=== PATIENT | female | born 1950 | race Caucasian/White ===

== ENCOUNTER 2019-08-22 12:21 | IRF | payer OTHER, SELFPAY ==
--- NOTE | ~2019-08-22 | XR_ITS ---
MODIFIED ESOPHAGRAM HISTORY: Dysphagia. TECHNIQUE: Modified barium esophagram was performed on 08/24/2019. I administered fluoroscopy and perfo rmed the exam with speech pathologist. Patient was seated for lateral fluoroscopic imaging for inges tion of thin liquids, pudding, solids and quantified amounts, followed by thin liquids an uncontrolle d amounts. This was recorded on tape. A single fluoroscopic spot image was also recorded. The DAP for this procedure was 1.515 Gycm2. The amount of fluoroscopy time used during this procedure was 2.1 mi nutes. FINDINGS: Oral stage: Premature spillage into the pharynx.. Pharyngeal stage: Laryngeal penetration small amount of contrast with multiple consistencies. No aspi ration. Cervical/esophageal stage: Adequate function. IMPRESSION: Oropharyngeal dysphagia with laryngeal penetration but not aspiration. Please correlate with speech pathologist findings and specific feeding recommendations. Reviewed, dictated and finalized at location A. ROAD SIGNAL TECHNICIAN IMPRESSION: Oropharyngeal dysphagia with laryngeal penetration but not aspirati on. Please correlate with speech pathologist findings and specific feeding rec ommendations.
--- NOTE | 2019-08-22 13:36 | ADMGEN ---
This patient, Cherise Islas, was admitted to [facility] Room 219-02. Patient/family oriented to hospital policies and general routines including ID bracelet, bed and alarms, visiting hours, pain management, procedures, bathroom and other care routines, personal items, smoking policy, room service/diet, and visiting hours. Valuables list has been completed. Information on how to activate the Rapid Response Team has been discussed. Patient/Family are encouraged to report perceived risks to care and to ask questions if they do not understand what they are told or what they should do.
[2019-08-22] MEDS: OMEGA 3 POLYUNSAT FATTY ACIDS 1 GM CAP PO (17:39)
[2019-08-22 20:41] VITALS: PULSE 88
[2019-08-22] MEDS: METOPROLOL SUCCINATE EXT REL 12.5 MG TABCR PO (20:41)
[2019-08-22] MEDS: ATORVASTATIN 40 MG TABLET PO (20:41)
[2019-08-22 21:43] VITALS: BP 119/57; PULSE 68; RESP 16; TEMP 36.2; O2SAT 95
[2019-08-23 05:34] LABS: Basophils Absolute Auto 0.1 K/mm3 (0.0-0.1); Basophils Percent Auto 0.6 % (0.2-1.2); Eosinophils Absolute Auto 0.3 K/mm3 (0-0.3); Eosinophils Percent Auto 3.4 % (0-4.4); Hematocrit 42.9 % (37.0-47.0); Hemoglobin 13.5 g/dL (12.0-15.0); Immature Granulocyte Absolute 0.02 K/mm3 (0.00-0.031); Immature Granulocyte Percent A 0.3 % (0-0.5); Lymphocytes Absolute Auto 1.52 K/mm3 (0.9-3.2); Lymphocytes Percent Auto 19.3 % (18.3-44.2); Mean Corpuscular HGB Conc 31.5 g/dl (32-36); Mean Corpuscular Hemoglobin 28.7 pg (26-34); Mean Corpuscular Volume 91.1 fl (80-100); Mean Platelet Volume 12.5 fl (7.4-10.4); Monocytes Absolute Auto 0.7 K/mm3 (0.1-0.6); Monocytes Percent Auto 8.9 % (2.6-8.5); Neutrophils Absolute Auto 5.3 K/mm3 (1.3-6.7); Neutrophils Percent Auto 67.5 % (45.5-73.1); Platelet Count Result 255 k/mm3 (150-375); Red Blood Count 4.71 M/mm3 (4.2-5.4); Red Cell Distribution Width 14.6 % (11.5-14.5); White Blood Count 7.9 K/mm3 (4.5-10.0)
[2019-08-23 05:56] LABS: Blood Urea Nitrogen 30 mg/dL (7-17); Carbon Dioxide 27 mmol/L (22-30); Chloride 101 mmol/L (98-107); Estimated Glomerular Filt Rate > 60; Glucose 112 mg/dL (65-105); Potassium 4.2 mmol/L (3.4-5.0); Sodium 141 mmol/L (137-145)
[2019-08-23 07:23] VITALS: BMI 24.8
[2019-08-23 07:29] VITALS: BP 121/46; PULSE 59; RESP 16; TEMP 36.2; O2SAT 96
--- NOTE | 2019-08-23 08:30 | WPDREHABHP ---
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 The patient is a 68-year-old woman with a past medical history of stroke, hypertension, and hypothyroidism who was recently discharged from [facility] on August 10, 2019 after an acute CVA. She initially presented with increased dysarthria and left-sided facial droop and left-sided upper and lower extremity weakness. She was able to walk at discharge. Since being home over the past week she has experienced increased weakness in the left upper lower extremities. She is unable to lift her arm off the bed. They attempted to get home health on board but they were unavailable for another week. She re-presented centers but again on August 17, 2019. She has been compliant with her aspirin and Plavix since discharge. Physical examination revealed left upper extremity flaccid, left lower extremity 3/5. She presents with left facial droop and her tongue she is to the right head CT was negative for any acute abnormality. A superimposed infarct was not excluded chest x-ray showed mild increased interstitial markings in the left lung possibly a chronic finding. Prior ejection fraction on August 17, 2019 showed adjust is action fraction of 55 to 60% with no valvular abnormalities. Neurology was consulted. Repeat MRI showed an enlarging area of abnormal diffusion hyperintensity within the region of the right basal ganglia suggesting area of enlarging acute infarction. MRA showed no significant stenosis or aneurysm in the visualized portions of the ambler of [place]. She was continue would not explain and Plavix and atorvastatin was increased. Cardiology was consulted but thought an embolic phenomenon was not likely. The patient was recommended at 30 day monitor post discharge to screen for atrial fibrillation. She is to follow-up with cardiology in 6 weeks. The patient passed her bedside swallowing evaluation and is on heart early regular consistency diet with thin liquids, however speech continues to follow for mild oral dysphagia and dysarthria physical examination continues to reveal left-sided weakness decreased gross motor controlled impaired balance and decreased safety awareness. DVT prophylaxis with b.i.d. subcutaneous heparin. Therapy was initiated at the acute care facility and the patient transferred to us from [facility] on August 22, 2019 FALLS OR SURGERIES: The patient has had no major surgeries in the 100 days prior to admission. They had no falls in the past year. They had no falls with injury in the past year. 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 Cleft palate repair earlier in life, hysterectomy SOCIAL HISTORY: the patient is and lives with her in a 1 level home with the platform entry. She was completely independent prior with no assistive device. Her is available to assist are following rehabilitation with higher level activities. Never smoker no alcohol or drug use FAMILY HISTORY: mother with cancer PRIOR LEVEL OF FUNCTION: Eating was INDEPENDENT Oral Care was INDEPENDENT Toileting Hygiene was INDEPENDENT Shower/Bathing was INDEPENDENT Upper Body Dressing was INDEPENDENT Lower Body Dressing was INDEPENDENT Donning/[place] Footwear was INDEPENDENT Rolling Left and Right was INDEPENDENT Sit to Lying was INDEPENDENT Lying to Sitting was INDEPENDENT Sit to Stand was INDEPENDENT Bed to Chair Transfers was INDEPENDE
[2019-08-23] MEDS: FERROUS SULFATE DRIED 142 MG TABCR PO (08:36)
[2019-08-23] MEDS: CHOLECALCIFEROL 1,000 UNIT TABLET 5000 UNITS PO (08:37)
[2019-08-23] MEDS: ASPIRIN 81 MG ENTERIC TABLET PO (08:37)
[2019-08-23] MEDS: FLUOXETINE HCL 20 MG CAP 40 MG PO (08:38)
[2019-08-23] MEDS: OMEGA 3 POLYUNSAT FATTY ACIDS 1 GM CAP PO ×2 (08:38→18:02)
[2019-08-23] MEDS: OPTI-GEN TAB 1 TABLET PO (08:38)
[2019-08-23] MEDS: CLOPIDOGREL BISULFATE 75 MG TABLET PO (08:38)
[2019-08-23] MEDS: LORATADINE 10 MG TABLET PO (08:38)
[2019-08-23] MEDS: PANTOPRAZOLE SOD SESQUIHYDRATE 20 MG TAB PO (08:39)
[2019-08-23] MEDS: ramipriL 5 MG CAPSULE 10 MG PO (08:39)
--- NOTE | 2019-08-23 12:26 | PCSTNOTE ---
Please refer to the Bedside Swallow Evaluation in the EMR.
[2019-08-23] MEDS: SOLIFENACIN 5 MG TABLET 10 MG PO (12:38)
[2019-08-23 14:00] VITALS: BP 132/48; PULSE 80; RESP 18; TEMP 36.5; O2SAT 93
[2019-08-23 14:22] VITALS: BMI 24.8
--- NOTE | 2019-08-23 14:39 | PCNSR ---
On 08/23/19, the student, [Jaimie Perez ], provided care and completed [facility] documentation on this patient. I have reviewed the student's documentation and agree with the findings.
[2019-08-23 20:43] VITALS: PULSE 80
[2019-08-23] MEDS: METOPROLOL SUCCINATE EXT REL 12.5 MG TABCR PO (20:43)
[2019-08-23] MEDS: HEPARIN SODIUM 5,000 UNITS/ML VIAL 5000 UNITS SUB-Q (20:43)
[2019-08-23] MEDS: ATORVASTATIN 40 MG TABLET PO (20:44)
[2019-08-23 22:00] VITALS: BP 131/57; PULSE 80; RESP 20; TEMP 36.3; O2SAT 93
[2019-08-24 06:00] VITALS: BP 139/63; PULSE 64; RESP 20; TEMP 36.3; O2SAT 94
[2019-08-24] MEDS: SOLIFENACIN 5 MG TABLET 10 MG PO (09:16)
[2019-08-24] MEDS: PANTOPRAZOLE SOD SESQUIHYDRATE 20 MG TAB PO (09:17)
[2019-08-24] MEDS: HEPARIN SODIUM 5,000 UNITS/ML VIAL 5000 UNITS SUB-Q ×2 (09:17→20:04)
[2019-08-24] MEDS: ramipriL 5 MG CAPSULE 10 MG PO (09:17)
[2019-08-24] MEDS: CLOPIDOGREL BISULFATE 75 MG TABLET PO (09:17)
[2019-08-24] MEDS: LORATADINE 10 MG TABLET PO (09:17)
[2019-08-24] MEDS: CHOLECALCIFEROL 1,000 UNIT TABLET 5000 UNITS PO (09:17)
[2019-08-24] MEDS: FLUOXETINE HCL 20 MG CAP 40 MG PO (09:17)
[2019-08-24] MEDS: OPTI-GEN TAB 1 TABLET PO (09:18)
[2019-08-24] MEDS: OMEGA 3 POLYUNSAT FATTY ACIDS 1 GM CAP PO ×2 (09:18→16:56)
[2019-08-24] MEDS: FERROUS SULFATE DRIED 142 MG TABCR PO (09:18)
[2019-08-24] MEDS: ASPIRIN 81 MG ENTERIC TABLET PO (09:18)
--- NOTE | 2019-08-24 12:42 | RPD ---
INDIVIDUALIZED PLAN OF CARE FOR Cherise Islas Brief Synthesis of Pre-Admission Screen, Post-Admission Evaluation and Therapy Evaluations: The patient presents to rehab with an extension of right basal ganglia infarct. Comorbidities include hypertension, hyperlipidemia, flaccid LUE, weakness LLE, dysarthria, dysphagia,hypothyroidism, gastroesophageal reflux disease, depression. The patient requires physician services for neurology services, medical oversight, and coordination of care. Emotional needs will be monitored as depression is a common sequelae of stroke. The patient needs physician monitoring and treatment of hypertension, monitoring for adverse reactions to new medications, and monitoring for infection. The patient requires nursing services for frequent neuro checks, anticoagulation therapy, medication management and education, pressure relief and skin care management, monitoring of labs, and fall/safety precautions. Deficits include:ADLs, Balance, Endurance, Family Training/Education, Mobility, Pain Management, ROM, Safety, Speech, Strength, Transfers, Swallowing Bottom Turning Lathe Turner/Case Management for: Discharge Planning and Patient/Family Counseling Physical Therapy: 5 days per week for 60 minutes. Treatments may include: Therapeutic Exercise, Gait Training, Neuromuscular Re-education, Transfer Training, Community Reintegration, Bed Mobility, Patient/Family Education, Wheelchair Mobility Group Therapy/Concurrent Therapy Rationales: -Improve attention span during functional activities in a distracted environment. -Enhance problem solving and/or adequate judgment skills during functional activities in a distracted environment. -Promote increased safety awareness in a distracted environment to reduce fall risk with functional tasks, transfers, and ambulation to allow a more safe, self-sufficient return to the home environment. -Improve dynamic balance skills to promote safety and independence with functional activities in a distracted environment for maximum gain. Occupational Therapy: 5 days per week for 60 minutes. Treatments may include: Therapeutic Exercise, Therapeutic Activity, Cognitive Training, Self-Care Transfer Training, Community Reintegration, Home Management, Patient/Family Education, Wheelchair Mobility Training, Energy Conservation Training Group Therapy/Concurrent Therapy Rationales: -Allow therapist to observe and teach generalization and carry-over of skills learned in individual therapy. -Enhance problem solving and sequencing skills during therapeutic activities in a distracted environment. -Promote increased safety awareness in a realistic setting to reduce fall risk with functional tasks due to visual and verbal distractions. -Increase functional level with ADLs, ADL transfers and use of adaptive equipment through therapeutic activities with others while promoting safety to allow a more safe, self-sufficient return home. Speech Therapy: 5 days per week for 60 minutes. Treatments may include: Dysphasia Therapy, Speech/Language/Communication Therapy, Cognitive Training, Patient/Family Education Group Therapy/Concurrent Therapy - Rationale: -Allow therapist to observe and teach generalization and carry-over of skills learned in individual therapy. -Improve comprehension skills with complex or abstract ideas through discussion in a realistic setting. -Enhance problem solving skills with complex issues during activities in a distracted environment. -Promote increased memory skills and concentration in a distracted environment for a safe transition home. -Improve attention and focus with language/communication skills in a realistic and supportive therapeutic setting. -Allow for practice of expression of basic needs and ideas through functional activities with others. Medical Prognosis: Good Anticipated Length of Stay: 12 days Rehab Goals: Eating Goal: 05-Setup or Clean Up Assistance Oral Hygiene Goal: 06-Independent Toileting Hy
--- NOTE | 2019-08-24 12:53 | PCSTNOTE ---
Addendum entered by RENATE Castillo 08/24/19 12:58: CORRECTION: Please refer to the MODIFIED BARIUM SWALLOW EVALUATION in the EMR. Original Note: Please refer to the Bedside Swallow Evaluation in the EMR.
[2019-08-24 14:00] VITALS: BP 127/54; PULSE 68; RESP 18; TEMP 36.8; O2SAT 97
--- NOTE | 2019-08-24 14:36 | WPDNEURORHBP ---
Subjective Date/time seen: 08/24/19 14:36 Interval history: this 68-year-old who has a long stented post repair dysphonia and dysarthria related to repair of the cleft lip and cleft palate was admitted to our acute rehab floor with extension of the right-sided basal ganglia infarct left-sided hemiparesis The patient denies any new neurological symptoms she is doing fairly well and engage in therapy looking forward to be going home her was present at the time of the interview she is quite motivated looking forward for the extensive physical therapy she needs There is no headache nausea vomiting chest pain or shortness of breath Review of Systems Review of Systems: All systems reviewed & are unremarkable except as noted in HPI and below Functional Status Ambulation Ability Ability to Ambulate 10 Feet: Moderate Assistance X 1 Ambulation Assistive Devices: Parallel Bars and Railings Exam Const: General: comfortable and no acute distress HENMT: General nose exam: Normal nares present Mouth: Yes moist mucous membranes Eyes: General: appearance normal, both eyes and all related structures Neck: Neck: supple and no JVD Resp: Effort & Inspection: normal respiratory effort Auscultation: clear to auscultation bilaterally Cardio: Rate: regular rate Rhythm: regular rhythm GI: GI Palp: Yes Soft to palpation Auscultation: normal bowel sounds Skin: General skin exam: normal color and no rashes or lesions noted Neuro: Other: the patient is awake and alert well oriented in time place and person has normal speech and language function except the dysarthria and dysphonia related to cleft lip and cleft palate repair in car stower I presume her left-sided hemiparesis is improving and overall status is of improvement however she still needs the acute rehab because she still needs the assistance all the activities of daily living Extrem: General: normal to inspection Psych: Mental Status: mental status grossly normal Objective Data Vital Signs Vital Signs: Vital Signs - 24 hr 08/23/19 20:43 08/23/19 22:00 08/24/19 06:00 Temperature 36.3 C L 36.3 C L Pulse Rate 80 80 64 Respiratory Rate 20 20 Blood Pressure 131/57 L 139/63 Pulse Oximetry 93 94 Intake/Output Intake/Output: Intake & Output 08/21/19 08/22/19 08/23/19 08/24/19 23:59 23:59 23:59 23:59 Intake Total 560 480 Balance 560 480 Meds/Results Medications: Active Medications Generic Name Dose Route Start Last Admin Trade Name Maria Del Carmen PRN Reason Stop Dose Admin Aspirin 81 mg 08/23/19 09:00 08/24/19 09:18 Aspirin Ec PO 81 mg DAILY NOÉ Administration Atorvastatin Calcium 40 mg 08/22/19 21:00 08/23/19 20:44 Lipitor PO 40 mg HS NOÉ Administration Calcium Carbonate 500 mg 08/23/19 09:00 08/24/19 09:18 Os-Margarito 500 +D Tablet PO 500 mg DAILY NOÉ Administration Clopidogrel Bisulfate 75 mg 08/23/19 09:00 08/24/19 09:17 Plavix PO 75 mg DAILY NOÉ Administration Ferrous Sulfate 142 mg 08/23/19 08:00 08/24/19 09:18 Slow Fe 142 Mg PO 142 mg DAILY@0800 NOÉ Administration Fish Oil 1 gm 08/22/19 17:00 08/24/19 09:18 Lovaza PO 1 gm BID NOÉ Administration Fluoxetine HCl 40 mg 08/23/19 09:00 08/24/19 09:17 Prozac PO 40 mg DAILY NOÉ Administration Heparin Sodium (Porcine) 5,000 units 08/23/19 21:00 08/24/19 09:17 Heparin Sodium SUB-Q 5,000 units Q12HR NOÉ Administration Loratadine 10 mg 08/23/19 09:00 08/24/19 09:17 Claritin PO 10 mg DAILY NOÉ Administration Metoprolol Succinate 12.5 mg 08/22/19 21:00 08/23/19 20:43 Toprol Xl PO 12.5 mg HS NOÉ Administration Multivitamins/Minerals 1 tablet 08/23/19 09:00 08/24/19 09:18 Ocuvite PO 1 tablet DAILY NOÉ Administration Pantoprazole Sodium 20 mg 08/23/19 09:00 08/24/19 09:17 Protonix PO 20 mg QAM NOÉ Administration Ramipril 10 mg 08/23/19 09:00 08/24/19 09:17 Altace
[2019-08-24] MEDS: ATORVASTATIN 40 MG TABLET PO (20:04)
[2019-08-24 20:08] VITALS: PULSE 74
[2019-08-24] MEDS: METOPROLOL SUCCINATE EXT REL 12.5 MG TABCR PO (20:08)
[2019-08-24 22:00] VITALS: BP 125/57; PULSE 78; RESP 17; TEMP 36.4; O2SAT 94
[2019-08-25 06:00] VITALS: BP 116/61; PULSE 65; RESP 17; TEMP 36.4; O2SAT 90
[2019-08-25] MEDS: FERROUS SULFATE DRIED 142 MG TABCR PO (08:32)
[2019-08-25] MEDS: ASPIRIN 81 MG ENTERIC TABLET PO (08:32)
[2019-08-25] MEDS: HEPARIN SODIUM 5,000 UNITS/ML VIAL 5000 UNITS SUB-Q ×2 (08:33→20:01)
[2019-08-25] MEDS: CLOPIDOGREL BISULFATE 75 MG TABLET PO (08:33)
[2019-08-25] MEDS: CHOLECALCIFEROL 1,000 UNIT TABLET 5000 UNITS PO (08:33)
[2019-08-25] MEDS: FLUOXETINE HCL 20 MG CAP 40 MG PO (08:33)
[2019-08-25] MEDS: SOLIFENACIN 5 MG TABLET 10 MG PO (08:34)
[2019-08-25] MEDS: PANTOPRAZOLE SOD SESQUIHYDRATE 20 MG TAB PO (08:34)
[2019-08-25] MEDS: LORATADINE 10 MG TABLET PO (08:34)
[2019-08-25] MEDS: OPTI-GEN TAB 1 TABLET PO (08:34)
[2019-08-25] MEDS: OMEGA 3 POLYUNSAT FATTY ACIDS 1 GM CAP PO ×2 (08:34→18:41)
[2019-08-25] MEDS: ramipriL 5 MG CAPSULE 10 MG PO (08:34)
[2019-08-25 14:00] VITALS: BP 118/73; PULSE 78; RESP 20; TEMP 36.3; O2SAT 97
[2019-08-25 20:01] VITALS: PULSE 80
[2019-08-25] MEDS: METOPROLOL SUCCINATE EXT REL 12.5 MG TABCR PO (20:01)
[2019-08-25] MEDS: ATORVASTATIN 40 MG TABLET PO (20:02)
[2019-08-25 22:00] VITALS: BP 119/51; PULSE 82; RESP 17; TEMP 36.2; O2SAT 95
--- NOTE | 2019-08-26 03:25 | PC.NURSE ---
Daylight Savings Time For Daylight Savings Time Ending in the Fall - Clocks are moved back. For Daylight Savings Time Beginning in the Spring - Clocks are moved ahead. For [facility], the time of change occurs at 0200 hrs. Time is taken from the websphere process server developer. This entry on the patient's chart recognizes the change in time reflected during documentation. Example: 2 entries for vital signs may be charted for 0200 hrs.
[2019-08-26 06:00] VITALS: BP 118/58; PULSE 69; RESP 17; TEMP 36.4; O2SAT 93
[2019-08-26] MEDS: CHOLECALCIFEROL 1,000 UNIT TABLET 5000 UNITS PO (08:42)
[2019-08-26] MEDS: OMEGA 3 POLYUNSAT FATTY ACIDS 1 GM CAP PO ×2 (08:42→18:30)
[2019-08-26] MEDS: LORATADINE 10 MG TABLET PO (08:43)
[2019-08-26] MEDS: OPTI-GEN TAB 1 TABLET PO (08:43)
[2019-08-26] MEDS: FERROUS SULFATE DRIED 142 MG TABCR PO (08:43)
[2019-08-26] MEDS: ASPIRIN 81 MG ENTERIC TABLET PO (08:43)
[2019-08-26] MEDS: FLUOXETINE HCL 20 MG CAP 40 MG PO (08:43)
[2019-08-26] MEDS: CLOPIDOGREL BISULFATE 75 MG TABLET PO (08:43)
[2019-08-26] MEDS: PANTOPRAZOLE SOD SESQUIHYDRATE 20 MG TAB PO (08:44)
[2019-08-26] MEDS: ramipriL 5 MG CAPSULE 10 MG PO (08:44)
[2019-08-26] MEDS: SOLIFENACIN 5 MG TABLET 10 MG PO (08:44)
[2019-08-26] MEDS: HEPARIN SODIUM 5,000 UNITS/ML VIAL 5000 UNITS SUB-Q ×2 (08:45→19:46)
--- NOTE | 2019-08-26 14:29 | WPDNEURORHBP ---
Subjective Date/time seen: 08/26/19 14:29 Interval history: this 68-year-old woman is here after having extension of the right basal ganglia infarct with moderately severe left-sided hemiparesis she is doing fairly well in the rehab our ever is still as long time to go she denies any headache nausea vomiting double vision blurred vision or any further weakness beside what she already came with Review of Systems Review of Systems: All systems reviewed & are unremarkable except as noted in HPI and below Functional Status Ambulation Ability Ability to Ambulate 10 Feet: Moderate Assistance X 1 Ambulation Assistive Devices: Parallel Bars Exam Const: General: comfortable and no acute distress HENMT: General nose exam: Normal nares present Mouth: Yes moist mucous membranes Eyes: General: appearance normal, both eyes and all related structures Neck: Neck: supple and no JVD Resp: Effort & Inspection: normal respiratory effort Auscultation: clear to auscultation bilaterally Cardio: Rate: regular rate Rhythm: regular rhythm GI: GI Palp: Yes Soft to palpation Auscultation: normal bowel sounds Skin: General skin exam: normal color and no rashes or lesions noted Neuro: Other: the patient is awake and alert well oriented time place and person has dysphonia and dysarthria related to her cleft lip and cleft palate repair early in her life moderately severe hemiparesis is slowly improving Extrem: General: normal to inspection Psych: Mental Status: mental status grossly normal Objective Data Vital Signs Vital Signs: Vital Signs - 24 hr 08/25/19 14:00 08/25/19 20:01 08/25/19 22:00 Temperature 36.3 C L 36.2 C L Pulse Rate 78 80 82 Respiratory Rate 20 17 Blood Pressure 118/73 119/51 L Pulse Oximetry 97 95 08/26/19 06:00 Temperature 36.4 C L Pulse Rate 69 Respiratory Rate 17 Blood Pressure 118/58 L Pulse Oximetry 93 Intake/Output Intake/Output: Intake & Output 08/23/19 08/24/19 08/25/19 08/27/19 23:59 23:59 23:59 00:59 Intake Total 560 480 509 713 Balance 560 184 780 713 Meds/Results Medications: Active Medications Generic Name Dose Route Start Last Admin Trade Name Freq PRN Reason Stop Dose Admin Aspirin 81 mg 08/23/19 09:00 08/26/19 08:43 Aspirin Ec PO 81 mg DAILY NOÉ Administration Atorvastatin Calcium 40 mg 08/22/19 21:00 08/25/19 20:02 Lipitor PO 40 mg HS NOÉ Administration Calcium Carbonate 500 mg 08/23/19 09:00 08/26/19 08:43 Os-Margarito 500 +D Tablet PO 500 mg DAILY NOÉ Administration Clopidogrel Bisulfate 75 mg 08/23/19 09:00 08/26/19 08:43 Plavix PO 75 mg DAILY NOÉ Administration Ferrous Sulfate 142 mg 08/23/19 08:00 08/26/19 08:43 Slow Fe 142 Mg PO 142 mg DAILY@0800 NOÉ Administration Fish Oil 1 gm 08/22/19 17:00 08/26/19 08:42 Lovaza PO 1 gm BID [facility] Administration Fluoxetine HCl 40 mg 08/23/19 09:00 08/26/19 08:43 Prozac PO 40 mg DAILY NOÉ Administration Heparin Sodium (Porcine) 5,000 units 08/23/19 21:00 08/26/19 08:45 Heparin Sodium SUB-Q 5,000 units Q12HR NOÉ Administration Loratadine 10 mg 08/23/19 09:00 08/26/19 08:43 Claritin PO 10 mg DAILY NOÉ Administration Metoprolol Succinate 12.5 mg 08/22/19 21:00 08/25/19 20:01 Toprol Xl PO 12.5 mg HS [facility] Administration Multivitamins/Minerals 1 tablet 08/23/19 09:00 08/26/19 08:43 Ocuvite PO 1 tablet DAILY NOÉ Administration Pantoprazole Sodium 20 mg 08/23/19 09:00 08/26/19 08:44 Protonix PO 20 mg QAM NOÉ Administration Ramipril 10 mg 08/23/19 09:00 08/26/19 08:44 Altace PO 5 mg DAILY NOÉ Administration Solifenacin 10 mg 08/23/19 09:00 08/26/19 08:44 Vesicare PO 10 mg DAILY NOÉ Administration Vitamin D 5,000 unit 08/23/19 09:00 08/26/19 08:42 Vitamin D PO 5,000 unit DAILY NOÉ Administration Radiology Results: ITS Impressions Modified Barium Candice
[2019-08-26 14:35] VITALS: BP 128/61; PULSE 73; RESP 16; TEMP 36.1; O2SAT 100
[2019-08-26 19:46] VITALS: PULSE 72
[2019-08-26] MEDS: METOPROLOL SUCCINATE EXT REL 12.5 MG TABCR PO (19:46)
[2019-08-26] MEDS: ATORVASTATIN 40 MG TABLET PO (19:46)
[2019-08-26 21:15] VITALS: BP 116/57; PULSE 76; RESP 16; TEMP 36.4; O2SAT 92
[2019-08-27 06:00] VITALS: BP 138/51; PULSE 63; RESP 16; TEMP 36.2; O2SAT 99
[2019-08-27] MEDS: CHOLECALCIFEROL 1,000 UNIT TABLET 5000 UNITS PO (08:33)
[2019-08-27] MEDS: ASPIRIN 81 MG ENTERIC TABLET PO (08:33)
[2019-08-27] MEDS: FERROUS SULFATE DRIED 142 MG TABCR PO (08:33)
[2019-08-27] MEDS: FLUOXETINE HCL 20 MG CAP 40 MG PO (08:34)
[2019-08-27] MEDS: CLOPIDOGREL BISULFATE 75 MG TABLET PO (08:34)
[2019-08-27] MEDS: PANTOPRAZOLE SOD SESQUIHYDRATE 20 MG TAB PO (08:35)
[2019-08-27] MEDS: OMEGA 3 POLYUNSAT FATTY ACIDS 1 GM CAP PO ×2 (08:35→17:46)
[2019-08-27] MEDS: OPTI-GEN TAB 1 TABLET PO (08:35)
[2019-08-27] MEDS: LORATADINE 10 MG TABLET PO (08:35)
[2019-08-27] MEDS: HEPARIN SODIUM 5,000 UNITS/ML VIAL 5000 UNITS SUB-Q ×2 (08:35→19:50)
[2019-08-27] MEDS: ramipriL 5 MG CAPSULE 10 MG PO (08:35)
[2019-08-27] MEDS: SOLIFENACIN 5 MG TABLET 10 MG PO (08:35)
[2019-08-27 14:00] VITALS: BP 114/59; PULSE 71; RESP 16; TEMP 36.3; O2SAT 95
[2019-08-27] MEDS: ATORVASTATIN 40 MG TABLET PO (19:50)
[2019-08-27 19:52] VITALS: PULSE 76
[2019-08-27] MEDS: METOPROLOL SUCCINATE EXT REL 12.5 MG TABCR PO (19:52)
[2019-08-27 22:00] VITALS: BP 125/51; PULSE 71; RESP 17; TEMP 35.9; O2SAT 96
[2019-08-28 06:00] VITALS: BP 113/60; PULSE 65; RESP 18; TEMP 35.8; O2SAT 93
[2019-08-28] MEDS: ramipriL 5 MG CAPSULE 10 MG PO (09:53)
[2019-08-28] MEDS: PANTOPRAZOLE SOD SESQUIHYDRATE 20 MG TAB PO (09:53)
[2019-08-28] MEDS: OMEGA 3 POLYUNSAT FATTY ACIDS 1 GM CAP PO ×2 (09:53→18:01)
[2019-08-28] MEDS: OPTI-GEN TAB 1 TABLET PO (09:53)
[2019-08-28] MEDS: ASPIRIN 81 MG ENTERIC TABLET PO (09:53)
[2019-08-28] MEDS: LORATADINE 10 MG TABLET PO (09:54)
[2019-08-28] MEDS: HEPARIN SODIUM 5,000 UNITS/ML VIAL 5000 UNITS SUB-Q ×2 (09:54→20:34)
[2019-08-28] MEDS: FERROUS SULFATE DRIED 142 MG TABCR PO (09:54)
[2019-08-28] MEDS: CLOPIDOGREL BISULFATE 75 MG TABLET PO (09:54)
[2019-08-28] MEDS: FLUOXETINE HCL 20 MG CAP 40 MG PO (09:54)
[2019-08-28] MEDS: SOLIFENACIN 5 MG TABLET 10 MG PO (09:54)
[2019-08-28] MEDS: CHOLECALCIFEROL 1,000 UNIT TABLET 5000 UNITS PO (09:55)
--- NOTE | 2019-08-28 11:43 | WPDNEURORHBP ---
Subjective Date/time seen: 08/28/19 11:43 Interval history: this 68-year-old woman is here after having had extension of right basal ganglia ischemic stroke with left-sided hemiparesis she is doing fairly well and making progress does not have any new specific neurological complaints. She denies any headache nausea vomiting chest pain shortness of breath fever chills or sore throat Review of Systems Review of Systems: All systems reviewed & are unremarkable except as noted in HPI and below Functional Status Ambulation Ability Ability to Ambulate 10 Feet: Maximum Assistance X 1 Ambulation Assistive Devices: Railings Exam Const: General: comfortable and no acute distress HENMT: General nose exam: Normal nares present Mouth: Yes moist mucous membranes Eyes: General: appearance normal, both eyes and all related structures Neck: Neck: supple and no JVD Resp: Effort & Inspection: normal respiratory effort Auscultation: clear to auscultation bilaterally Cardio: Rate: regular rate Rhythm: regular rhythm GI: GI Palp: Yes Soft to palpation Auscultation: normal bowel sounds Skin: General skin exam: normal color and no rashes or lesions noted Neuro: Other: patient is awake and alert well oriented time place and person speech and language functions are normal left-sided hemiparesis is improving she still needing quite a bit of assistance in the acute is of daily living as documented by the physical therapist and the occupational therapist Extrem: General: normal to inspection Psych: Mental Status: mental status grossly normal Objective Data Vital Signs Vital Signs: Vital Signs - 24 hr 08/27/19 14:00 08/27/19 19:52 08/27/19 22:00 Temperature 36.3 C L 35.9 C L Pulse Rate 71 76 71 Respiratory Rate 16 17 Blood Pressure 114/59 L 125/51 L Pulse Oximetry 95 96 08/28/19 06:00 Temperature 35.8 C L Pulse Rate 65 Respiratory Rate 18 Blood Pressure 113/60 Pulse Oximetry 93 Intake/Output Intake/Output: Intake & Output 08/25/19 08/26/19 08/27/19 08/28/19 22:59 23:59 23:59 23:59 Intake Total 720 200 Balance 720 200 Meds/Results Medications: Active Medications Generic Name Dose Route Start Last Admin Trade Name Freq PRN Reason Stop Dose Admin Aspirin 81 mg 08/23/19 09:00 08/28/19 09:53 Aspirin Ec PO 81 mg DAILY NOÉ Administration Atorvastatin Calcium 40 mg 08/22/19 21:00 08/27/19 19:50 Lipitor PO 40 mg HS NOÉ Administration Calcium Carbonate 500 mg 08/23/19 09:00 08/28/19 09:54 Os-Margarito 500 +D Tablet PO 500 mg DAILY NOÉ Administration Clopidogrel Bisulfate 75 mg 08/23/19 09:00 08/28/19 09:54 Plavix PO 75 mg DAILY NOÉ Administration Ferrous Sulfate 142 mg 08/23/19 08:00 08/28/19 09:54 Slow Fe 142 Mg PO 142 mg DAILY@0800 NOÉ Administration Fish Oil 1 gm 08/22/19 17:00 08/28/19 09:53 Lovaza PO 1 gm BID NOÉ Administration Fluoxetine HCl 40 mg 08/23/19 09:00 08/28/19 09:54 Prozac PO 40 mg DAILY NOÉ Administration Heparin Sodium (Porcine) 5,000 units 08/23/19 21:00 08/28/19 09:54 Heparin Sodium SUB-Q 5,000 units Q12HR NOÉ Administration Loratadine 10 mg 08/23/19 09:00 08/28/19 09:54 Claritin PO 10 mg DAILY NOÉ Administration Metoprolol Succinate 12.5 mg 08/22/19 21:00 08/27/19 19:52 Toprol Xl PO 12.5 mg HS NOÉ Administration Multivitamins/Minerals 1 tablet 08/23/19 09:00 08/28/19 09:53 Ocuvite PO 1 tablet DAILY NOÉ Administration Pantoprazole Sodium 20 mg 08/23/19 09:00 08/28/19 09:53 Protonix PO 20 mg QAM NOÉ Administration Ramipril 10 mg 08/23/19 09:00 08/28/19 09:53 Altace PO 10 mg DAILY NOÉ Administration Solifenacin 10 mg 08/23/19 09:00 08/28/19 09:54 Vesicare PO 10 mg DAILY NOÉ Administration Vitamin D 5,000 unit 08/23/19 09:00 08/28/19 09:55 Vitamin D PO 5,000 unit DAILY NOÉ Administration Radiology Res
--- NOTE | 2019-08-28 12:20 | PCDIET ---
Nutrition Follow-Up Complete: Inadequate energy intake related to decreased appetite as evidenced by today's lunch consumption (50%) and statement by pt and . Pt will consume greater than 75% of all meals and acceptance of Enlive. Goal partially met. Pt is eating an average of 70% of meals Nutrition recommendation: Recommend continuation of Minced & Moist diet + Enlive 1x/day. Advancement of diet when medically appropriate. Last recorded weight is 63.6 kg. Bowel Motility: +BM 08/24 Labs Reviewed:Last labs taken on 08/22 - Glu(112), Na(141) Meds Noted:Ca carbonate + Vitamin D, Plavix, multivitamin, Protonix, Lipitor, Lovaza Additional Notes: Pt states no N/V, abdominal pain, or diarrhea. Says her appetite is okay. Provided stroke MNT education to pt. Will monitor intake. Will follow up in 5 days.
[2019-08-28 14:00] VITALS: BP 124/51; PULSE 74; RESP 16; TEMP 35.9; O2SAT 94
--- NOTE | 2019-08-28 14:12 | PCNSR ---
On 08/28/19, the student, Jaimie Perez, provided care and completed [facility] documentation on this patient. I have reviewed the student's documentation and agree with the findings.
[2019-08-28] MEDS: ATORVASTATIN 40 MG TABLET PO (20:33)
[2019-08-28 20:34] VITALS: PULSE 68
[2019-08-28] MEDS: METOPROLOL SUCCINATE EXT REL 12.5 MG TABCR PO (20:34)
[2019-08-28 22:00] VITALS: BP 132/58; PULSE 78; RESP 18; TEMP 36.3; O2SAT 94
[2019-08-29 06:00] VITALS: BP 123/50; PULSE 66; RESP 18; TEMP 36.3; O2SAT 94
--- NOTE | 2019-08-29 08:45 | PCPTNOTE ---
JALEN MCKEON completed an inpatient rehab wheelchair evaluation on [facility] on 08/29/2019. The patient is unable to safely and independently ambulate household distances due to their current impairments. Their diagnosis is CVA and their impairments include decreased strength, decreased endurance, decreased range of motion, decreased balance, lower extremity weakness, and ataxia. Patient is weight bearing status is weight-bearing as tolerated on the bilateral lower legs. The patient demonstrates significant functional mobility limitations that impair their ability to participate in mobility-related activities of daily living (MRADLs), including toileting, feeding, dressing, grooming, and bathing in the customary locations in the home. These limitations cannot be sufficiently resolved by the use of an appropriately fitted cane or walker. It is recommended that the patient utilize a wheelchair for functional mobility within the home in order to facilitate optimal safety, independence and participation in all MRADL's and adequately access their home environment on a regular basis. The patient's home provides adequate access between rooms, maneuvering space, and surfaces to accommodate the recommended wheelchair. The use of a wheelchair for functional mobility is strongly recommended and the patient is receptive to using the wheelchair. The use of this wheelchair will significantly improve the patient's ability to participate in MRADLS and the patient will use it on a regular basis in the home. This will facilitate optimal safety, independence, and participation. The patient has demonstrated sufficient physical and mental capabilities needed to safely propel a manual wheelchair that is provided in the home during a typical day. Recommended Wheelchair Frame: 16 - 16 Recommended Wheelchair Size: standard Recommended Wheelchair Cushion: gel Wheelchair Leg Recommendations: swing-away leg rests, swing-away arm rests -A left arm trough is recommended because the patient has hemiplegia. A left arm trough is recommended because the patient has uncontrolled arm movements and increase tone and limited strength in left UE and requires positioning and protection. Evaluating Therapist Date I agree with and certify that the above recommendation is medically necessary. Referring Physician Date I agree with and certify that the above recommendation is medically necessary. Referring Physician Date
[2019-08-29] MEDS: CHOLECALCIFEROL 1,000 UNIT TABLET 5000 UNITS PO (08:46)
[2019-08-29] MEDS: FERROUS SULFATE DRIED 142 MG TABCR PO (08:46)
[2019-08-29] MEDS: ASPIRIN 81 MG ENTERIC TABLET PO (08:46)
[2019-08-29] MEDS: HEPARIN SODIUM 5,000 UNITS/ML VIAL 5000 UNITS SUB-Q ×2 (08:47→21:32)
[2019-08-29] MEDS: CLOPIDOGREL BISULFATE 75 MG TABLET PO (08:47)
[2019-08-29] MEDS: OMEGA 3 POLYUNSAT FATTY ACIDS 1 GM CAP PO ×2 (08:47→18:09)
[2019-08-29] MEDS: FLUOXETINE HCL 20 MG CAP 40 MG PO (08:47)
[2019-08-29] MEDS: LORATADINE 10 MG TABLET PO (08:47)
[2019-08-29] MEDS: OPTI-GEN TAB 1 TABLET PO (08:48)
[2019-08-29] MEDS: ramipriL 5 MG CAPSULE 10 MG PO (08:48)
[2019-08-29] MEDS: SOLIFENACIN 5 MG TABLET 10 MG PO (08:48)
[2019-08-29] MEDS: PANTOPRAZOLE SOD SESQUIHYDRATE 20 MG TAB PO (08:48)
--- NOTE | 2019-08-29 12:31 | WPDNEURORHBP ---
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-sided hemiparesis of moderately severe degree she is slowly improving but little tired after having the 1st session of the PT and OT but without any headache nausea vomiting chest pain or shortness of breath fever chills or sore throat Review of Systems Review of Systems: All systems reviewed & are unremarkable except as noted in HPI and below Functional Status Ambulation Ability Ability to Ambulate 10 Feet: Maximum Assistance X 1 Ambulation Assistive Devices: Railings Exam Const: General: comfortable and no acute distress HENMT: General nose exam: Normal nares present Mouth: Yes moist mucous membranes Eyes: General: appearance normal, both eyes and all related structures Neck: Neck: supple and no JVD Resp: Effort & Inspection: normal respiratory effort Auscultation: clear to auscultation bilaterally Cardio: Rate: regular rate Rhythm: regular rhythm GI: GI Palp: Yes Soft to palpation Auscultation: normal bowel sounds Skin: General skin exam: normal color and no rashes or lesions noted Neuro: Other: patient is awake and alert well oriented to time place and person speech is at baseline left-sided hemiparesis is improving overall pictures of improvement no new neurological findings Extrem: General: normal to inspection Psych: Mental Status: mental status grossly normal Objective Data Vital Signs Vital Signs: Vital Signs - 24 hr 08/28/19 14:00 08/28/19 20:34 08/28/19 22:00 Temperature 35.9 C L 36.3 C L Pulse Rate 74 68 78 Respiratory Rate 16 18 Blood Pressure 124/51 L 132/58 L Pulse Oximetry 94 94 08/29/19 06:00 Temperature 36.3 C L Pulse Rate 66 Respiratory Rate 18 Blood Pressure 123/50 L Pulse Oximetry 94 Intake/Output Intake/Output: Intake & Output 08/26/19 08/27/19 08/28/19 08/29/19 23:59 23:59 23:59 23:59 Intake Total 720 500 240 Balance 720 500 240 Meds/Results Medications: Active Medications Generic Name Dose Route Start Last Admin Trade Name Freq PRN Reason Stop Dose Admin Aspirin 81 mg 08/23/19 09:00 08/29/19 08:46 Aspirin Ec PO 81 mg DAILY NOÉ Administration Atorvastatin Calcium 40 mg 08/22/19 21:00 08/28/19 20:33 Lipitor PO 40 mg HS NOÉ Administration Calcium Carbonate 500 mg 08/23/19 09:00 08/29/19 08:47 Os-Margarito 500 +D Tablet PO 500 mg DAILY NOÉ Administration Clopidogrel Bisulfate 75 mg 08/23/19 09:00 08/29/19 08:47 Plavix PO 75 mg DAILY NOÉ Administration Ferrous Sulfate 142 mg 08/23/19 08:00 08/29/19 08:46 Slow Fe 142 Mg PO 142 mg DAILY@0800 NOÉ Administration Fish Oil 1 gm 08/22/19 17:00 08/29/19 08:47 Lovaza PO 1 gm BID NOÉ Administration Fluoxetine HCl 40 mg 08/23/19 09:00 08/29/19 08:47 Prozac PO 40 mg DAILY NOÉ Administration Heparin Sodium (Porcine) 5,000 units 08/23/19 21:00 08/29/19 08:47 Heparin Sodium SUB-Q 5,000 units Q12HR NOÉ Administration Loratadine 10 mg 08/23/19 09:00 08/29/19 08:47 Claritin PO 10 mg DAILY NOÉ Administration Metoprolol Succinate 12.5 mg 08/22/19 21:00 08/28/19 20:34 Toprol Xl PO 12.5 mg HS [facility] Administration Multivitamins/Minerals 1 tablet 08/23/19 09:00 08/29/19 08:48 Ocuvite PO 1 tablet DAILY NOÉ Administration Pantoprazole Sodium 20 mg 08/23/19 09:00 08/29/19 08:48 Protonix PO 20 mg QAM NOÉ Administration Ramipril 10 mg 08/23/19 09:00 08/29/19 08:48 Altace PO 10 mg DAILY NOÉ Administration Solifenacin 10 mg 08/23/19 09:00 08/29/19 08:48 Vesicare PO 10 mg DAILY NOÉ Administration Vitamin D 5,000 unit 08/23/19 09:00 08/29/19 08:46 Vitamin D PO 5,000 unit DAILY NOÉ Administration Radiology Results: ITS Impressions Modified Barium S
[2019-08-29 14:00] VITALS: BP 126/64; PULSE 82; RESP 18; TEMP 36.4; O2SAT 97
[2019-08-29] MEDS: ATORVASTATIN 40 MG TABLET PO (21:30)
[2019-08-29 21:33] VITALS: PULSE 80
[2019-08-29] MEDS: METOPROLOL SUCCINATE EXT REL 12.5 MG TABCR PO (21:33)
[2019-08-29 22:00] VITALS: BP 107/51; PULSE 70; RESP 18; TEMP 36.4; O2SAT 96
[2019-08-30 05:10] LABS: Basophils Absolute Auto 0.1 K/mm3 (0.0-0.1); Basophils Percent Auto 0.7 % (0.2-1.2); Eosinophils Absolute Auto 0.2 K/mm3 (0-0.3); Eosinophils Percent Auto 2.1 % (0-4.4); Hematocrit 41.5 % (37.0-47.0); Hemoglobin 13.4 g/dL (12.0-15.0); Immature Granulocyte Absolute 0.02 K/mm3 (0.00-0.031); Immature Granulocyte Percent A 0.2 % (0-0.5); Lymphocytes Absolute Auto 1.79 K/mm3 (0.9-3.2); Lymphocytes Percent Auto 22.3 % (18.3-44.2); Mean Corpuscular HGB Conc 32.3 g/dl (32-36); Mean Corpuscular Hemoglobin 29.1 pg (26-34); Mean Platelet Volume 11.8 fl (7.4-10.4); Monocytes Absolute Auto 0.6 K/mm3 (0.1-0.6); Monocytes Percent Auto 7.1 % (2.6-8.5); Neutrophils Absolute Auto 5.4 K/mm3 (1.3-6.7); Neutrophils Percent Auto 67.6 % (45.5-73.1); Platelet Count Result 290 k/mm3 (150-375); Red Blood Count 4.61 M/mm3 (4.2-5.4); Red Cell Distribution Width 14.2 % (11.5-14.5)
[2019-08-30 05:25] LABS: Blood Urea Nitrogen 30 mg/dL (7-17); Calcium 9.3 mg/dL (8.4-10.2); Carbon Dioxide 28 mmol/L (22-30); Chloride 102 mmol/L (98-107); Estimated CRCL calculation 48 ml/min; Estimated Glomerular Filt Rate > 60; Glucose 108 mg/dL (65-105); Potassium 4.2 mmol/L (3.4-5.0); Sodium 137 mmol/L (137-145)
[2019-08-30 06:00] VITALS: BP 110/60; PULSE 68; RESP 18; TEMP 36.3; O2SAT 97
--- NOTE | 2019-08-30 09:00 | WPDNEURORHBP ---
Subjective Date/time seen: August 30 2019 at 9:00 a.m. Interval history: this 68-year-old woman is here after having had stroke on the right cerebral hemisphere left-sided hemiparesis she is doing fairly well and moving forward in therapy and making progress she denies any headache nausea vomiting chest pain shortness of breath fever chills or sore throat Review of Systems Review of Systems: All systems reviewed & are unremarkable except as noted in HPI and below Functional Status Ambulation Ability Ability to Ambulate 10 Feet: Moderate Assistance X 1 Ambulation Assistive Devices: Railings Exam Const: General: comfortable and no acute distress HENMT: General nose exam: Normal nares present Mouth: Yes moist mucous membranes Eyes: General: appearance normal, both eyes and all related structures Neck: Neck: supple and no JVD Resp: Effort & Inspection: normal respiratory effort Auscultation: clear to auscultation bilaterally Cardio: Rate: regular rate Rhythm: regular rhythm GI: GI Palp: Yes Soft to palpation Auscultation: normal bowel sounds Skin: General skin exam: normal color and no rashes or lesions noted Neuro: Other: patient is awake and alert will oriented in time place and person is speech and language functions are normal cranial nerve examination reveals mild left-sided facial weakness and motor examination reveals moderately severe left-sided hemiparesis which is slowly improving Extrem: General: normal to inspection Psych: Mental Status: mental status grossly normal Objective Data Vital Signs Vital Signs: Vital Signs - 24 hr 08/30/19 14:00 08/30/19 20:04 08/30/19 22:00 Temperature 36.2 C L 36.2 C L Pulse Rate 80 68 59 L Respiratory Rate 18 16 Blood Pressure 124/50 L 123/57 L Pulse Oximetry 96 97 08/31/19 06:00 Temperature 36.4 C L Pulse Rate 64 Respiratory Rate 18 Blood Pressure 121/85 Pulse Oximetry 98 Intake/Output Intake/Output: Intake & Output 08/28/19 08/29/19 08/30/19 08/31/19 23:59 23:59 23:59 23:59 Intake Total 500 720 960 Balance 500 720 960 Meds/Results Medications: Active Medications Generic Name Dose Route Start Last Admin Trade Name Freq PRN Reason Stop Dose Admin Aspirin 81 mg 08/23/19 09:00 08/30/19 09:18 Aspirin Ec PO 81 mg DAILY NOÉ Administration Atorvastatin Calcium 40 mg 08/22/19 21:00 08/30/19 20:04 Lipitor PO 40 mg HS NOÉ Administration Calcium Carbonate 500 mg 08/23/19 09:00 08/30/19 09:18 Os-Margarito 500 +D Tablet PO 500 mg DAILY NOÉ Administration Clopidogrel Bisulfate 75 mg 08/23/19 09:00 08/30/19 09:19 Plavix PO 75 mg DAILY NOÉ Administration Ferrous Sulfate 142 mg 08/23/19 08:00 08/30/19 09:18 Slow Fe 142 Mg PO 142 mg DAILY@0800 NOÉ Administration Fish Oil 1 gm 08/22/19 17:00 08/30/19 17:12 Lovaza PO 1 gm BID NOÉ Administration Fluoxetine HCl 40 mg 08/23/19 09:00 08/30/19 09:19 Prozac PO 40 mg DAILY NOÉ Administration Heparin Sodium (Porcine) 5,000 units 08/23/19 21:00 08/30/19 20:02 Heparin Sodium SUB-Q 5,000 units Q12HR NOÉ Administration Loratadine 10 mg 08/23/19 09:00 08/30/19 09:19 Claritin PO 10 mg DAILY NOÉ Administration Metoprolol Succinate 12.5 mg 08/22/19 21:00 08/30/19 20:04 Toprol Xl PO 12.5 mg HS NOÉ Administration Multivitamins/Minerals 1 tablet 08/23/19 09:00 08/30/19 09:19 Ocuvite PO 1 tablet DAILY NOÉ Administration Pantoprazole Sodium 20 mg 08/23/19 09:00 08/30/19 09:19 Protonix PO 20 mg QAM NOÉ Administration Ramipril 10 mg 08/23/19 09:00 08/30/19 09:19 Altace PO 10 mg DAILY NOÉ Administration Solifenacin 10 mg 08/23/19 09:00 08/30/19 09:20 Vesicare PO 10 mg DAILY NOÉ Administration Vitamin D 5,000 unit 08/23/19 09:00 08/30/19 09:18 Vitamin D PO 5,000 unit DAILY NOÉ Administration Radiology Results: ITS Impressions Modified
[2019-08-30] MEDS: ASPIRIN 81 MG ENTERIC TABLET PO (09:18)
[2019-08-30] MEDS: FERROUS SULFATE DRIED 142 MG TABCR PO (09:18)
[2019-08-30] MEDS: CHOLECALCIFEROL 1,000 UNIT TABLET 5000 UNITS PO (09:18)
[2019-08-30] MEDS: FLUOXETINE HCL 20 MG CAP 40 MG PO (09:19)
[2019-08-30] MEDS: LORATADINE 10 MG TABLET PO (09:19)
[2019-08-30] MEDS: CLOPIDOGREL BISULFATE 75 MG TABLET PO (09:19)
[2019-08-30] MEDS: ramipriL 5 MG CAPSULE 10 MG PO (09:19)
[2019-08-30] MEDS: PANTOPRAZOLE SOD SESQUIHYDRATE 20 MG TAB PO (09:19)
[2019-08-30] MEDS: OMEGA 3 POLYUNSAT FATTY ACIDS 1 GM CAP PO ×2 (09:19→17:12)
[2019-08-30] MEDS: OPTI-GEN TAB 1 TABLET PO (09:19)
[2019-08-30] MEDS: HEPARIN SODIUM 5,000 UNITS/ML VIAL 5000 UNITS SUB-Q ×2 (09:19→20:02)
[2019-08-30] MEDS: SOLIFENACIN 5 MG TABLET 10 MG PO (09:20)
--- NOTE | 2019-08-30 09:40 | PC.NURSE ---
Late entry: brought in 30 day event monitor and placed at about 5pm.
--- NOTE | 2019-08-30 12:23 | PCDIET ---
Nutrition Follow-Up Complete: Nutrition Diagnosis: Inadequate energy intake related to decreased appetite as evidenced by today's lunch consumption (50%) and statement by patient and . Nutrition Goal: Patient will consume greater than 75% of all meals and Ensure Enlive supplement. Goal not met with average intake of 54% of recorded meals since 08/29/19. Patient feels food is going fine and reports taking Ensure Enlive daily, although does not want to receive it more frequently. Last recorded weight is 63.6 kg. Recommend obtaining new weight. Bowel Motility: Last documented bowel movement on 08/25/19. Labs Reviewed: Glu (108), BUN (30) Meds Noted: Oscal + D, Ferrous Sulfate, Ocuvite, Protonix, Vitamin D Additional Notes: No documented skin breakdown. Will continue to monitor with same goals. Nutrition Monitoring and Evaluation: Follow up in 5 days.
[2019-08-30 14:00] VITALS: BP 124/50; PULSE 80; RESP 18; TEMP 36.2; O2SAT 96
[2019-08-30 20:04] VITALS: PULSE 68
[2019-08-30] MEDS: ATORVASTATIN 40 MG TABLET PO (20:04)
[2019-08-30] MEDS: METOPROLOL SUCCINATE EXT REL 12.5 MG TABCR PO (20:04)
[2019-08-30 22:00] VITALS: BP 123/57; PULSE 59; RESP 16; TEMP 36.2; O2SAT 97
[2019-08-31 06:00] VITALS: BP 121/85; PULSE 64; RESP 18; TEMP 36.4; O2SAT 98
[2019-08-31] MEDS: FERROUS SULFATE DRIED 142 MG TABCR PO (08:30)
[2019-08-31] MEDS: ASPIRIN 81 MG ENTERIC TABLET PO (08:30)
[2019-08-31] MEDS: CHOLECALCIFEROL 1,000 UNIT TABLET 5000 UNITS PO (08:30)
[2019-08-31] MEDS: CLOPIDOGREL BISULFATE 75 MG TABLET PO (08:31)
[2019-08-31] MEDS: LORATADINE 10 MG TABLET PO (08:31)
[2019-08-31] MEDS: FLUOXETINE HCL 20 MG CAP 40 MG PO (08:31)
[2019-08-31] MEDS: OMEGA 3 POLYUNSAT FATTY ACIDS 1 GM CAP PO ×2 (08:32→17:23)
[2019-08-31] MEDS: SOLIFENACIN 5 MG TABLET 10 MG PO (08:32)
[2019-08-31] MEDS: ramipriL 5 MG CAPSULE 10 MG PO (08:32)
[2019-08-31] MEDS: OPTI-GEN TAB 1 TABLET PO (08:32)
[2019-08-31] MEDS: PANTOPRAZOLE SOD SESQUIHYDRATE 20 MG TAB PO (08:32)
[2019-08-31] MEDS: HEPARIN SODIUM 5,000 UNITS/ML VIAL 5000 UNITS SUB-Q ×2 (08:33→20:09)
--- NOTE | 2019-08-31 10:17 | WPDNEURORHBP ---
Subjective Date/time seen: 08/31/19 10:17 Interval history: this 68-year-old woman is here with a right hemispheric stroke which has left her with the left-sided moderately severe hemiparesis she is moving forward in the therapy and making improvement denies any headache nausea vomiting chest pain shortness of breath fever chills or sore throat Review of Systems Review of Systems: All systems reviewed & are unremarkable except as noted in HPI and below Functional Status Ambulation Ability Ability to Ambulate 10 Feet: Moderate Assistance X 1 Ambulation Assistive Devices: Railings Exam Const: General: comfortable and no acute distress HENMT: General nose exam: Normal nares present Mouth: Yes moist mucous membranes Eyes: General: appearance normal, both eyes and all related structures Neck: Neck: supple and no JVD Resp: Effort & Inspection: normal respiratory effort Auscultation: clear to auscultation bilaterally Cardio: Rate: regular rate Rhythm: regular rhythm GI: GI Palp: Yes Soft to palpation Auscultation: normal bowel sounds Skin: General skin exam: normal color and no rashes or lesions noted Neuro: Other: patient is awake alert well oriented time place and person has mild left-sided facial weakness 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 and moderately severe left hemiparesis which is slowly improving Patient is test and needs significant assistance in the activities of daily living Extrem: General: normal to inspection Psych: Mental Status: mental status grossly normal Objective Data Vital Signs Vital Signs: Vital Signs - 24 hr 08/30/19 14:00 08/30/19 20:04 08/30/19 22:00 Temperature 36.2 C L 36.2 C L Pulse Rate 80 68 59 L Respiratory Rate 18 16 Blood Pressure 124/50 L 123/57 L Pulse Oximetry 96 97 08/31/19 06:00 Temperature 36.4 C L Pulse Rate 64 Respiratory Rate 18 Blood Pressure 121/85 Pulse Oximetry 98 Intake/Output Intake/Output: Intake & Output 08/28/19 08/29/19 08/30/19 08/31/19 23:59 23:59 23:59 23:59 Intake Total 500 720 960 220 Balance 500 720 960 220 Meds/Results Medications: Active Medications Generic Name Dose Route Start Last Admin Trade Name Freq PRN Reason Stop Dose Admin Aspirin 81 mg 08/23/19 09:00 08/31/19 08:30 Aspirin Ec PO 81 mg DAILY [facility] Administration Atorvastatin Calcium 40 mg 08/22/19 21:00 08/30/19 20:04 Lipitor PO 40 mg HS NOÉ Administration Calcium Carbonate 500 mg 08/23/19 09:00 08/31/19 08:30 Os-Margarito 500 +D Tablet PO 500 mg DAILY [facility] Administration Clopidogrel Bisulfate 75 mg 08/23/19 09:00 08/31/19 08:31 Plavix PO 75 mg DAILY [facility] Administration Ferrous Sulfate 142 mg 08/23/19 08:00 08/31/19 08:30 Slow Fe 142 Mg PO 142 mg DAILY@0800 [facility] Administration Fish Oil 1 gm 08/22/19 17:00 08/31/19 08:32 Lovaza PO 1 gm BID [facility] Administration Fluoxetine HCl 40 mg 08/23/19 09:00 08/31/19 08:31 Prozac PO 40 mg DAILY [facility] Administration Heparin Sodium (Porcine) 5,000 units 08/23/19 21:00 08/31/19 08:33 Heparin Sodium SUB-Q 5,000 units Q12HR NOÉ Administration Loratadine 10 mg 08/23/19 09:00 08/31/19 08:31 Claritin PO 10 mg DAILY [facility] Administration Metoprolol Succinate 12.5 mg 08/22/19 21:00 08/30/19 20:04 Toprol Xl PO 12.5 mg HS [facility] Administration Multivitamins/Minerals 1 tablet 08/23/19 09:00 08/31/19 08:32 Ocuvite PO 1 tablet DAILY [facility] Administration Pantoprazole Sodium 20 mg 08/23/19 09:00 08/31/19 08:32 Protonix PO 20 mg QAM [facility] Administration Ramipril 10 mg 08/23/19 09:00 08/31/19 08:32 Altace PO 10 mg DAILY [facility] Administration Solifenacin 10 mg 08/23/19 09:00 08/31/19 08:32 Vesicare PO 10 mg DAILY [facility] Administration Vitamin D 5,000 unit 08/23/19 09:00 08/31/19 08:30 Vitamin D PO 5,000 unit DAILY [facility]
[2019-08-31 14:00] VITALS: BP 122/59; PULSE 76; RESP 19; TEMP 36.4; O2SAT 96
[2019-08-31 20:09] VITALS: PULSE 76
[2019-08-31] MEDS: METOPROLOL SUCCINATE EXT REL 12.5 MG TABCR PO (20:09)
[2019-08-31] MEDS: ATORVASTATIN 40 MG TABLET PO (20:09)
[2019-08-31 20:43] VITALS: BP 139/61; PULSE 68; RESP 18; TEMP 35.8; O2SAT 95
[2019-09-01 06:00] VITALS: BP 128/45; PULSE 60; RESP 18; TEMP 36.1; O2SAT 97
[2019-09-01] MEDS: ASPIRIN 81 MG ENTERIC TABLET PO (08:47)
[2019-09-01] MEDS: FERROUS SULFATE DRIED 142 MG TABCR PO (08:47)
[2019-09-01] MEDS: CHOLECALCIFEROL 1,000 UNIT TABLET 5000 UNITS PO (08:47)
[2019-09-01] MEDS: OPTI-GEN TAB 1 TABLET PO (08:48)
[2019-09-01] MEDS: CLOPIDOGREL BISULFATE 75 MG TABLET PO (08:48)
[2019-09-01] MEDS: FLUOXETINE HCL 20 MG CAP 40 MG PO (08:48)
[2019-09-01] MEDS: OMEGA 3 POLYUNSAT FATTY ACIDS 1 GM CAP PO ×2 (08:48→17:18)
[2019-09-01] MEDS: LORATADINE 10 MG TABLET PO (08:48)
[2019-09-01] MEDS: ramipriL 5 MG CAPSULE 10 MG PO (08:49)
[2019-09-01] MEDS: SOLIFENACIN 5 MG TABLET 10 MG PO (08:49)
[2019-09-01] MEDS: HEPARIN SODIUM 5,000 UNITS/ML VIAL 5000 UNITS SUB-Q ×2 (08:49→20:03)
[2019-09-01] MEDS: PANTOPRAZOLE SOD SESQUIHYDRATE 20 MG TAB PO (08:49)
--- NOTE | 2019-09-01 11:34 | WPDNEURORHBP ---
Subjective Date/time seen: 09/01/19 11:34 no complaints ,just slid off chair o/e no complaints movements as such Functional Status Ambulation Ability Ability to Ambulate 10 Feet: Moderate Assistance X 1 Ambulation Assistive Devices: Railings Transfers Ability Ability to Transfer In/Out of Chair: Minimum Assistance X 1 Exam Const: General: cooperative, comfortable, no acute distress, alert and awake Nutritional Appearance: average body habitus Orientation/consciousness: oriented to person, oriented to place and oriented to time HENMT: Head: normal to inspection, normocephalic and atraumatic Ears: hearing grossly normal bilaterally General nose exam: Normal external nose present Face and sinus: normal facial exam Mouth: Yes Normal oral and palatal mucosa present Eyes: General: appearance normal, both eyes and all related structures Visual Sanchez: normal visual sanchez by confrontation Alignment and Position: alignment normal Periorbital: periorbital findings normal Eyelids: eyelids normal Conjunctivae: conjunctivae normal Sclera: sclerae normal Cornea: corneas normal Pupils: Equal, round and reactive pupils present EOM: EOMs intact bilaterally Neck: Neck: full ROM Resp: Effort & Inspection: normal respiratory effort Auscultation: clear to auscultation bilaterally Cardio: Rate: regular rate Rhythm: regular rhythm GI: Auscultation: normal bowel sounds Skin: General skin exam: no rashes or lesions noted Neuro: General: patient oriented x3, tone normal and moves all extremities Cranial nerves: Yes Equal, round and reactive pupils present, Yes Bilaterally intact EOM present (asymmetrical), Yes Nystagmus not present, Yes Midline tongue present, Yes Normal hearing present and Yes Ability to bilaterally elevate shoulders present Speech: normal speech (low volume) Motor exam (neuro): 5/5 motor strength present throughout (left hemiparesis) Sensory Exam: normal sensation (sensory deficit) Psych: Speech and movement: Slurred speech present Affect: Anxious affect present Objective Data Vital Signs Vital Signs: Vital Signs - 24 hr 08/31/19 14:00 08/31/19 20:09 08/31/19 20:43 Temperature 36.4 C 35.8 C L Pulse Rate 76 76 68 Respiratory Rate 19 18 Blood Pressure 122/59 L 139/61 Pulse Oximetry 96 95 09/01/19 06:00 Temperature 36.1 C L Pulse Rate 60 Respiratory Rate 18 Blood Pressure 128/45 L Pulse Oximetry 97 Intake/Output Intake/Output: Intake & Output 08/29/19 08/30/19 08/31/19 09/01/19 23:59 23:59 23:59 23:59 Intake Total 720 960 700 100 Balance 720 960 700 100 Meds/Results Medications: Active Medications Generic Name Dose Route Start Last Admin Trade Name Maria Del Carmen PRN Reason Stop Dose Admin Aspirin 81 mg 08/23/19 09:00 09/01/19 08:47 Aspirin Ec PO 81 mg DAILY [facility] Administration Atorvastatin Calcium 40 mg 08/22/19 21:00 08/31/19 20:09 Lipitor PO 40 mg HS [facility] Administration Calcium Carbonate 500 mg 08/23/19 09:00 09/01/19 08:47 Os-Margarito 500 +D Tablet PO 500 mg DAILY [facility] Administration Clopidogrel Bisulfate 75 mg 08/23/19 09:00 09/01/19 08:48 Plavix PO 75 mg DAILY [facility] Administration Ferrous Sulfate 142 mg 08/23/19 08:00 09/01/19 08:47 Slow Fe 142 Mg PO 142 mg DAILY@0800 NOÉ Administration Fish Oil 1 gm 08/22/19 17:00 09/01/19 08:48 Lovaza PO 1 gm BID [facility] Administration Fluoxetine HCl 40 mg 08/23/19 09:00 09/01/19 08:48 Prozac PO 40 mg DAILY [facility] Administration Heparin Sodium (Porcine) 5,000 units 08/23/19 21:00 09/01/19 08:49 Heparin Sodium SUB-Q 5,000 units Q12HR NOÉ Administration Loratadine 10 mg 08/23/19 09:00 09/01/19 08:48 Claritin PO 10 mg DAILY [facility] Administration Metoprolol Succinate 12.5 mg 08/22/19 21:00 08/31/19 20:09 Toprol Xl PO 12.5 mg HS [facility] Administration Multivitamins/Minerals 1 tablet 08/23/19 09:00 09/01/19 08:48 Ocuvite PO 1 tablet DAILY [facility]
[2019-09-01 14:00] VITALS: BP 110/74; PULSE 73; RESP 18; TEMP 36.1; O2SAT 98
[2019-09-01 20:03] VITALS: PULSE 76
[2019-09-01] MEDS: METOPROLOL SUCCINATE EXT REL 12.5 MG TABCR PO (20:03)
[2019-09-01] MEDS: ATORVASTATIN 40 MG TABLET PO (20:03)
[2019-09-01 22:00] VITALS: BP 119/48; PULSE 72; RESP 14; TEMP 36.2; O2SAT 95
[2019-09-02 06:00] VITALS: BP 135/56; PULSE 77; RESP 18; TEMP 36.2; O2SAT 97
[2019-09-02] MEDS: FERROUS SULFATE DRIED 142 MG TABCR PO (08:37)
[2019-09-02] MEDS: ASPIRIN 81 MG ENTERIC TABLET PO (08:37)
[2019-09-02] MEDS: CHOLECALCIFEROL 1,000 UNIT TABLET 5000 UNITS PO (08:37)
[2019-09-02] MEDS: CLOPIDOGREL BISULFATE 75 MG TABLET PO (08:38)
[2019-09-02] MEDS: LORATADINE 10 MG TABLET PO (08:38)
[2019-09-02] MEDS: OMEGA 3 POLYUNSAT FATTY ACIDS 1 GM CAP PO ×2 (08:38→17:19)
[2019-09-02] MEDS: OPTI-GEN TAB 1 TABLET PO (08:38)
[2019-09-02] MEDS: HEPARIN SODIUM 5,000 UNITS/ML VIAL 5000 UNITS SUB-Q ×2 (08:38→20:48)
[2019-09-02] MEDS: FLUOXETINE HCL 20 MG CAP 40 MG PO (08:38)
[2019-09-02] MEDS: PANTOPRAZOLE SOD SESQUIHYDRATE 20 MG TAB PO (08:39)
[2019-09-02] MEDS: SOLIFENACIN 5 MG TABLET 10 MG PO (08:39)
[2019-09-02] MEDS: ramipriL 5 MG CAPSULE 10 MG PO (08:39)
--- NOTE | 2019-09-02 11:41 | WPDNEURORHBP ---
Subjective Date/time seen: 09/02/19 11:41 Review of Systems Review of Systems: All systems reviewed & are unremarkable except as noted in HPI and below Functional Status Ambulation Ability Ability to Ambulate 10 Feet: Moderate Assistance X 1 Ambulation Assistive Devices: Railings Transfers Ability Ability to Transfer In/Out of Chair: Minimum Assistance X 1 Exam Const: General: cooperative, comfortable, no acute distress, alert and awake Nutritional Appearance: average body habitus Orientation/consciousness: patient oriented x3 Eyes: General: appearance normal, both eyes and all related structures Neck: Neck: full ROM Resp: Effort & Inspection: normal respiratory effort Auscultation: clear to auscultation bilaterally Cardio: Rate: regular rate Rhythm: regular rhythm GI: Auscultation: normal bowel sounds Back/Spine/Pelvis: Back: no CVA tenderness Skin: General skin exam: no rashes or lesions noted Neuro: General: patient oriented x3 and moves all extremities Cranial nerves: Yes Equal, round and reactive pupils present, Yes Bilaterally intact EOM present, Yes Nystagmus not present, Yes Midline tongue present and Yes Ability to bilaterally elevate shoulders present Speech: normal speech Gait exam (Neuro): Normal gait present (hemiparetic) Motor exam (neuro): 5/5 motor strength present throughout (hemiparesis) Deep tendon reflexes (DTR's): Right triceps reflex intensity grade: 1+, Left triceps reflex intensity grade: 2+, Rt Biceps (C5, C6): 1+, Left biceps reflex intensity grade: 2+, Right brachioradialis reflex intensity grade: 1+, Left brachioradialis reflex intensity grade: 2+, Right patellar reflex intensity grade: 1+, Left patellar reflex intensity grade: 2+, Right ankle reflex intensity grade: 1+ and Left ankle reflex intensity grade: 2+ Plantar Reflex Responses: downgoing: right and upgoing (positive Babinski): left Psych: Appearance: grossly normal Affect: Anxious affect present Attitude: cooperative Thought process: Normal thought process present Thought content: Yes Normal thought content present Insight: Good insight present (Psych) Judgement: Good judgement present (Psych) Objective Data Vital Signs Vital Signs: Vital Signs - 24 hr 09/01/19 14:00 09/01/19 20:03 09/01/19 22:00 Temperature 36.1 C L 36.2 C L Pulse Rate 73 76 72 Respiratory Rate 18 14 Blood Pressure 110/74 119/48 L Pulse Oximetry 98 95 09/02/19 06:00 Temperature 36.2 C L Pulse Rate 77 Respiratory Rate 18 Blood Pressure 135/56 L Pulse Oximetry 97 Intake/Output Intake/Output: Intake & Output 08/30/19 08/31/19 09/01/19 09/02/19 23:59 23:59 23:59 23:59 Intake Total 960 700 540 200 Balance 960 700 540 200 Meds/Results Medications: Active Medications Generic Name Dose Route Start Last Admin Trade Name Maria Del Carmen PRN Reason Stop Dose Admin Aspirin 81 mg 08/23/19 09:00 09/02/19 08:37 Aspirin Ec PO 81 mg DAILY NOÉ Administration Atorvastatin Calcium 40 mg 08/22/19 21:00 09/01/19 20:03 Lipitor PO 40 mg HS NOÉ Administration Calcium Carbonate 500 mg 08/23/19 09:00 09/02/19 08:37 Os-Margarito 500 +D Tablet PO 500 mg DAILY NOÉ Administration Clopidogrel Bisulfate 75 mg 08/23/19 09:00 09/02/19 08:38 Plavix PO 75 mg DAILY NOÉ Administration Ferrous Sulfate 142 mg 08/23/19 08:00 09/02/19 08:37 Slow Fe 142 Mg PO 142 mg DAILY@0800 NOÉ Administration Fish Oil 1 gm 08/22/19 17:00 09/02/19 08:38 Lovaza PO 1 gm BID NOÉ Administration Fluoxetine HCl 40 mg 08/23/19 09:00 09/02/19 08:38 Prozac PO 40 mg DAILY NOÉ Administration Heparin Sodium (Porcine) 5,000 units 08/23/19 21:00 09/02/19 08:38 Heparin Sodium SUB-Q 5,000 units Q12HR NOÉ Administration Loratadine 10 mg 08/23/19 09:00 09/02/19 08:38 Claritin PO 10 mg DAILY NOÉ Administration Metoprolol Succinate 12.5 mg 08/22/19 21:00 09/01/19 20:03 Toprol Xl PO 12.5 mg
--- NOTE | 2019-09-02 11:46 | WPDNEURORHBP ---
Subjective Date/time seen: doing well slept good pain under ibdqvee22/15/20 11:46 Review of Systems Review of Systems: All systems reviewed & are unremarkable except as noted in HPI and below Functional Status Ambulation Ability Ability to Ambulate 10 Feet: Moderate Assistance X 1 Ambulation Assistive Devices: Railings Transfers Ability Ability to Transfer In/Out of Chair: Minimum Assistance X 1 Exam Const: General: cooperative, comfortable, no acute distress, alert and awake Nutritional Appearance: average body habitus Orientation/consciousness: patient oriented x3 Eyes: General: appearance normal, both eyes and all related structures Alignment and Position: alignment normal Periorbital: periorbital findings normal Eyelids: eyelids normal Conjunctivae: conjunctivae normal Sclera: sclerae normal Cornea: corneas normal Pupils: Equal, round and reactive pupils present EOM: EOMs intact bilaterally Neck: Neck: full ROM Resp: Effort & Inspection: able to speak in complete sentences Auscultation: clear to auscultation bilaterally Cardio: Rate: regular rate Rhythm: regular rhythm GI: Auscultation: normal bowel sounds Neuro: General: patient oriented x3, moves all extremities and no focal motor deficits (left hemiparesis) Cranial nerves: Yes Equal, round and reactive pupils present, Yes Bilaterally intact EOM present, Yes Normal facial strength present, Yes Midline tongue present and Yes Ability to bilaterally elevate shoulders present Speech: normal speech Deep tendon reflexes (DTR's): Right triceps reflex intensity grade: 1+, Left triceps reflex intensity grade: 2+, Rt Biceps (C5, C6): 1+, Left biceps reflex intensity grade: 2+, Right brachioradialis reflex intensity grade: 1+, Left brachioradialis reflex intensity grade: 2+, Right patellar reflex intensity grade: 1+, Left patellar reflex intensity grade: 2+, Right ankle reflex intensity grade: 1+ and Left ankle reflex intensity grade: 2+ Plantar Reflex Responses: downgoing: right and upgoing (positive Babinski): left Coordination: [id number] test normal (right side) Psych: Mental Status: mental status grossly normal Speech and movement: Normal speech and movement present Affect: Anxious affect present Attitude: cooperative Thought process: Normal thought process present Thought content: Yes Normal thought content present Insight: Fair insight present (Psych) Objective Data Vital Signs Vital Signs: Vital Signs - 24 hr 09/01/19 14:00 09/01/19 20:03 09/01/19 22:00 Temperature 36.1 C L 36.2 C L Pulse Rate 73 76 72 Respiratory Rate 18 14 Blood Pressure 110/74 119/48 L Pulse Oximetry 98 95 09/02/19 06:00 Temperature 36.2 C L Pulse Rate 77 Respiratory Rate 18 Blood Pressure 135/56 L Pulse Oximetry 97 Intake/Output Intake/Output: Intake & Output 08/30/19 08/31/19 09/01/19 09/02/19 23:59 23:59 23:59 23:59 Intake Total 960 700 540 200 Balance 960 700 540 200 Meds/Results Medications: Active Medications Generic Name Dose Route Start Last Admin Trade Name Freq PRN Reason Stop Dose Admin Aspirin 81 mg 08/23/19 09:00 09/02/19 08:37 Aspirin Ec PO 81 mg DAILY NOÉ Administration Atorvastatin Calcium 40 mg 08/22/19 21:00 09/01/19 20:03 Lipitor PO 40 mg HS NOÉ Administration Calcium Carbonate 500 mg 08/23/19 09:00 09/02/19 08:37 Os-Margarito 500 +D Tablet PO 500 mg DAILY NOÉ Administration Clopidogrel Bisulfate 75 mg 08/23/19 09:00 09/02/19 08:38 Plavix PO 75 mg DAILY NOÉ Administration Ferrous Sulfate 142 mg 08/23/19 08:00 09/02/19 08:37 Slow Fe 142 Mg PO 142 mg DAILY@0800 NOÉ Administration Fish Oil 1 gm 08/22/19 17:00 09/02/19 08:38 Lovaza PO 1 gm BID NOÉ Administration Fluoxetine HCl 40 mg 08/23/19 09:00 09/02/19 08:38 Prozac PO 40 mg DAILY NOÉ Administration Heparin Sodium (Porcine) 5,000 units 08/23/19 21:00 09/02/19 08:38 Heparin Sodium SUB-Q 5,
[2019-09-02 14:00] VITALS: BP 134/61; PULSE 86; RESP 16; TEMP 36.1; O2SAT 97
[2019-09-02 19:01] LABS: Add Urine Microscopic? YES; Appearance Urine Clear (Clear); Bacteria Urine 2+ /hpf; Bilirubin Urine Negative (Negative); Blood Urine Negative (Negative); Color Urine Yellow (Yellow); Glucose Urine UA Negative (Negative); Ketones Urine Negative (Negative); Leukocyte Esterase Ur Trace LEU/UL (Negative); Mucus Urine Rare /lpf; Nitrate Urine Positive (Negative); Protein Urine Negative (Negative); RBC Urine 0-2 /hpf (0-2); Specific Grav Ur 1.018 (1.001-1.035); Urobilinogen Urine Negative mg/dL (<2.0)
[2019-09-02 20:48] VITALS: PULSE 80
[2019-09-02] MEDS: METOPROLOL SUCCINATE EXT REL 12.5 MG TABCR PO (20:48)
[2019-09-02] MEDS: ATORVASTATIN 40 MG TABLET PO (20:48)
[2019-09-02 22:00] VITALS: BP 126/59; PULSE 72; RESP 18; TEMP 35.9; O2SAT 96
[2019-09-03 06:00] VITALS: BP 134/62; PULSE 74; RESP 18; TEMP 35.9; O2SAT 98
[2019-09-03] MEDS: CLOPIDOGREL BISULFATE 75 MG TABLET PO (09:26)
[2019-09-03] MEDS: ASPIRIN 81 MG ENTERIC TABLET PO (09:26)
[2019-09-03] MEDS: FERROUS SULFATE DRIED 142 MG TABCR PO (09:26)
[2019-09-03] MEDS: CHOLECALCIFEROL 1,000 UNIT TABLET 5000 UNITS PO (09:26)
[2019-09-03] MEDS: FLUOXETINE HCL 20 MG CAP 40 MG PO (09:27)
[2019-09-03] MEDS: PANTOPRAZOLE SOD SESQUIHYDRATE 20 MG TAB PO (09:27)
[2019-09-03] MEDS: OMEGA 3 POLYUNSAT FATTY ACIDS 1 GM CAP PO ×2 (09:27→17:26)
[2019-09-03] MEDS: LORATADINE 10 MG TABLET PO (09:27)
[2019-09-03] MEDS: OPTI-GEN TAB 1 TABLET PO (09:27)
[2019-09-03] MEDS: HEPARIN SODIUM 5,000 UNITS/ML VIAL 5000 UNITS SUB-Q ×2 (09:27→20:19)
[2019-09-03] MEDS: ramipriL 5 MG CAPSULE 10 MG PO (09:27)
[2019-09-03] MEDS: SOLIFENACIN 5 MG TABLET 10 MG PO (09:28)
[2019-09-03 14:00] VITALS: BP 108/50; PULSE 73; RESP 18; TEMP 36.6; O2SAT 95
[2019-09-03 20:17] VITALS: PULSE 72
[2019-09-03] MEDS: ATORVASTATIN 40 MG TABLET PO (20:17)
[2019-09-03] MEDS: METOPROLOL SUCCINATE EXT REL 12.5 MG TABCR PO (20:17)
[2019-09-03 20:25] VITALS: PULSE 72; RESP 18; O2SAT 95
[2019-09-03 22:00] VITALS: BP 110/52; PULSE 65; RESP 18; TEMP 36.6; O2SAT 97
[2019-09-04 06:00] VITALS: BP 108/60; PULSE 62; RESP 16; TEMP 36.3; O2SAT 98
[2019-09-04] MEDS: ASPIRIN 81 MG ENTERIC TABLET PO (09:43)
[2019-09-04] MEDS: CHOLECALCIFEROL 1,000 UNIT TABLET 5000 UNITS PO (09:43)
[2019-09-04] MEDS: FERROUS SULFATE DRIED 142 MG TABCR PO (09:43)
[2019-09-04] MEDS: FLUOXETINE HCL 20 MG CAP 40 MG PO (09:44)
[2019-09-04] MEDS: CLOPIDOGREL BISULFATE 75 MG TABLET PO (09:44)
[2019-09-04] MEDS: PANTOPRAZOLE SOD SESQUIHYDRATE 20 MG TAB PO (09:45)
[2019-09-04] MEDS: OMEGA 3 POLYUNSAT FATTY ACIDS 1 GM CAP PO ×2 (09:45→17:25)
[2019-09-04] MEDS: ramipriL 5 MG CAPSULE 10 MG PO (09:45)
[2019-09-04] MEDS: OPTI-GEN TAB 1 TABLET PO (09:45)
[2019-09-04] MEDS: LORATADINE 10 MG TABLET PO (09:45)
[2019-09-04] MEDS: SOLIFENACIN 5 MG TABLET 10 MG PO (09:46)
[2019-09-04] MEDS: HEPARIN SODIUM 5,000 UNITS/ML VIAL 5000 UNITS SUB-Q ×2 (09:46→20:19)
[2019-09-04 14:00] VITALS: BP 112/48; PULSE 73; RESP 18; TEMP 36.3; O2SAT 96
--- NOTE | 2019-09-04 14:59 | WPDNEURORHBP ---
Subjective Date/time seen: 09/04/19 14:59 Interval history: this 68-year-old woman is here after having a stroke which has left her with the left-sided hemiparesis from which she is slowly improving overall status is of improvement no headache nausea vomiting chest pain shortness of breath fever chills sore throat Review of Systems Review of Systems: All systems reviewed & are unremarkable except as noted in HPI and below Functional Status Ambulation Ability Ability to Ambulate 10 Feet: Moderate Assistance X 1 Ambulation Assistive Devices: Parallel Bars Transfers Ability Ability to Transfer In/Out of Chair: Minimum Assistance X 1 Exam Const: General: comfortable and no acute distress HENMT: General nose exam: Normal nares present Mouth: Yes moist mucous membranes Eyes: General: appearance normal, both eyes and all related structures Neck: Neck: supple and no JVD Resp: Effort & Inspection: normal respiratory effort Auscultation: clear to auscultation bilaterally Cardio: Rate: regular rate Rhythm: regular rhythm GI: GI Palp: Yes Soft to palpation Auscultation: normal bowel sounds Skin: General skin exam: normal color and no rashes or lesions noted Neuro: Other: patient is awake and alert well oriented time place and person is speech and language functions are normal cranial examination apart from showing mild left-sided facial weakness is normal moderately severe left hemiparesis is slowly improving is still needing assistance all the activities of daily living Extrem: General: normal to inspection Objective Data Vital Signs Vital Signs: Vital Signs - 24 hr 09/03/19 20:17 09/03/19 20:25 09/03/19 22:00 Temperature 36.6 C Pulse Rate 72 72 65 Respiratory Rate 18 18 Blood Pressure 110/52 L Pulse Oximetry 95 97 09/04/19 06:00 09/04/19 14:00 Temperature 36.3 C L 36.3 C L Pulse Rate 62 73 Respiratory Rate 16 18 Blood Pressure 108/60 112/48 L Pulse Oximetry 98 96 Intake/Output Intake/Output: Intake & Output 09/01/19 09/02/19 09/03/19 09/04/19 23:59 23:59 23:59 23:59 Intake Total 540 600 820 410 Balance 540 600 820 410 Meds/Results Medications: Active Medications Generic Name Dose Route Start Last Admin Trade Name Freq PRN Reason Stop Dose Admin Aspirin 81 mg 08/23/19 09:00 09/04/19 09:43 Aspirin Ec PO 81 mg DAILY NOÉ Administration Atorvastatin Calcium 40 mg 08/22/19 21:00 09/03/19 20:17 Lipitor PO 40 mg HS NOÉ Administration Calcium Carbonate 500 mg 08/23/19 09:00 09/04/19 09:43 Os-Margarito 500 +D Tablet PO 500 mg DAILY NOÉ Administration Clopidogrel Bisulfate 75 mg 08/23/19 09:00 09/04/19 09:44 Plavix PO 75 mg DAILY NOÉ Administration Ferrous Sulfate 142 mg 08/23/19 08:00 09/04/19 09:43 Slow Fe 142 Mg PO 142 mg DAILY@0800 NOÉ Administration Fish Oil 1 gm 08/22/19 17:00 09/04/19 09:45 Lovaza PO 1 gm BID NOÉ Administration Fluoxetine HCl 40 mg 08/23/19 09:00 09/04/19 09:44 Prozac PO 40 mg DAILY NOÉ Administration Heparin Sodium (Porcine) 5,000 units 08/23/19 21:00 09/04/19 09:46 Heparin Sodium SUB-Q 5,000 units Q12HR NOÉ Administration Loratadine 10 mg 08/23/19 09:00 09/04/19 09:45 Claritin PO 10 mg DAILY NOÉ Administration Metoprolol Succinate 12.5 mg 08/22/19 21:00 09/03/19 20:17 Toprol Xl PO 12.5 mg HS NOÉ Administration Multivitamins/Minerals 1 tablet 08/23/19 09:00 09/04/19 09:45 Ocuvite PO 1 tablet DAILY NOÉ Administration Pantoprazole Sodium 20 mg 08/23/19 09:00 09/04/19 09:45 Protonix PO 20 mg QAM NOÉ Administration Ramipril 10 mg 08/23/19 09:00 09/04/19 09:45 Altace PO 10 mg DAILY NOÉ Administration Solifenacin 10 mg 08/23/19 09:00 09/04/19 09:46 Vesicare PO 10 mg DAILY NOÉ Administration Vitamin D 5,000 unit 08/23/19 09:00 09/04/19 09:43 Vitamin D PO 5,000 unit DAILY NOÉ Administration
[2019-09-04 20:18] VITALS: PULSE 75
[2019-09-04] MEDS: METOPROLOL SUCCINATE EXT REL 12.5 MG TABCR PO (20:18)
[2019-09-04] MEDS: ATORVASTATIN 40 MG TABLET PO (20:19)
[2019-09-04 22:00] VITALS: BP 123/60; PULSE 72; RESP 18; TEMP 36.6; O2SAT 95
[2019-09-05 06:00] VITALS: BP 124/59; PULSE 66; RESP 20; TEMP 36.6; O2SAT 100
[2019-09-05] MEDS: HEPARIN SODIUM 5,000 UNITS/ML VIAL 5000 UNITS SUB-Q ×2 (08:49→20:26)
[2019-09-05] MEDS: ramipriL 5 MG CAPSULE 10 MG PO (08:49)
[2019-09-05] MEDS: OMEGA 3 POLYUNSAT FATTY ACIDS 1 GM CAP PO ×2 (08:49→16:58)
[2019-09-05] MEDS: ASPIRIN 81 MG ENTERIC TABLET PO (08:49)
[2019-09-05] MEDS: SOLIFENACIN 5 MG TABLET 10 MG PO (08:49)
[2019-09-05] MEDS: CLOPIDOGREL BISULFATE 75 MG TABLET PO (08:49)
[2019-09-05] MEDS: CHOLECALCIFEROL 1,000 UNIT TABLET 5000 UNITS PO (08:49)
[2019-09-05] MEDS: PANTOPRAZOLE SOD SESQUIHYDRATE 20 MG TAB PO (08:50)
[2019-09-05] MEDS: OPTI-GEN TAB 1 TABLET PO (08:50)
[2019-09-05] MEDS: FLUOXETINE HCL 20 MG CAP 40 MG PO (08:50)
[2019-09-05] MEDS: FERROUS SULFATE DRIED 142 MG TABCR PO (08:50)
[2019-09-05] MEDS: LORATADINE 10 MG TABLET PO (08:50)
--- NOTE | 2019-09-05 10:26 | PCPTNOTE ---
Cherise Islas was evaluated for a [bonita-cane] on 09/05/2019 by this physical therapist. The bonita-cane will resolve patient's mobility limitations and will be used for ADL's within the home. The patient can safely use the bonita-cane. ?The bonita-cane will resolve the patient?s mobility deficits, including deficits with left LE strength, endurance, standing balance and left side awareness deficit.
--- NOTE | 2019-09-05 12:20 | PCSTNOTE ---
Patient is tolerating trials of soft solids without difficulty. Would recommend diet upgrade to soft and bite-sized.
--- NOTE | 2019-09-05 12:29 | WPDNEURORHBP ---
Subjective Date/time seen: 09/05/19 12:29 Interval history: this 68-year-old woman is here because of right hemispheric stroke with left-sided hemiparesis and mild dysphagia followed by the speech pathologist couple of days ago she had evidence of UTI now the sensitivities back which shows that the E coli is resistant to Levaquin which was started couple of days ago and it had some be discontinued and we will change it to Augmentin with which the bacteria is sensitive Patient otherwise is doing well progressing in the rehab a walking much better denies any headache nausea vomiting chest pain shortness of breath fever chills or sore throat Review of Systems Review of Systems: All systems reviewed & are unremarkable except as noted in HPI and below Functional Status Ambulation Ability Ability to Ambulate 10 Feet: Moderate Assistance X 1 Ambulation Assistive Devices: Cane, Devin Transfers Ability Ability to Transfer In/Out of Chair: Minimum Assistance X 1 Exam Const: General: comfortable and no acute distress HENMT: General nose exam: Normal nares present Mouth: Yes moist mucous membranes Eyes: General: appearance normal, both eyes and all related structures Neck: Neck: supple and no JVD Resp: Effort & Inspection: normal respiratory effort Auscultation: clear to auscultation bilaterally Cardio: Rate: regular rate Rhythm: regular rhythm GI: GI Palp: Yes Soft to palpation Auscultation: normal bowel sounds Skin: General skin exam: normal color and no rashes or lesions noted Neuro: Other: patient is awake alert will oriented times place and person speech language functions are normal cranial examination apart from showing the left-sided facial weakness is normal left-sided hemiparesis improving she still needing assistance is all the activities of daily living Extrem: General: normal to inspection Psych: Mental Status: mental status grossly normal Objective Data Vital Signs Vital Signs: Vital Signs - 24 hr 09/04/19 14:00 09/04/19 20:18 09/04/19 22:00 Temperature 36.3 C L 36.6 C Pulse Rate 73 75 72 Respiratory Rate 18 18 Blood Pressure 112/48 L 123/60 Pulse Oximetry 96 95 09/05/19 06:00 Temperature 36.6 C Pulse Rate 66 Respiratory Rate 20 Blood Pressure 124/59 L Pulse Oximetry 100 Intake/Output Intake/Output: Intake & Output 09/02/19 09/03/19 09/04/19 09/05/19 23:59 23:59 23:59 23:59 Intake Total 600 820 650 320 Balance 600 820 650 320 Meds/Results Medications: Active Medications Generic Name Dose Route Start Last Admin Trade Name Maria Del Carmen MORE Reason Stop Dose Admin Aspirin 81 mg 08/23/19 09:00 09/05/19 08:49 Aspirin Ec PO 81 mg DAILY NOÉ Administration Atorvastatin Calcium 40 mg 08/22/19 21:00 09/04/19 20:19 Lipitor PO 40 mg HS NOÉ Administration Calcium Carbonate 500 mg 08/23/19 09:00 09/05/19 08:49 Os-Margarito 500 +D Tablet PO 500 mg DAILY NOÉ Administration Clopidogrel Bisulfate 75 mg 08/23/19 09:00 09/05/19 08:49 Plavix PO 75 mg DAILY NOÉ Administration Ferrous Sulfate 142 mg 08/23/19 08:00 09/05/19 08:50 Slow Fe 142 Mg PO 142 mg DAILY@0800 NOÉ Administration Fish Oil 1 gm 08/22/19 17:00 09/05/19 08:49 Lovaza PO 1 gm BID NOÉ Administration Fluoxetine HCl 40 mg 08/23/19 09:00 09/05/19 08:50 Prozac PO 40 mg DAILY NOÉ Administration Heparin Sodium (Porcine) 5,000 units 08/23/19 21:00 09/05/19 08:49 Heparin Sodium SUB-Q 5,000 units Q12HR NOÉ Administration Loratadine 10 mg 08/23/19 09:00 09/05/19 08:50 Claritin PO 10 mg DAILY NOÉ Administration Metoprolol Succinate 12.5 mg 08/22/19 21:00 09/04/19 20:18 Toprol Xl PO 12.5 mg HS NOÉ Administration Multivitamins/Minerals 1 tablet 08/23/19 09:00 09/05/19 08:50 Ocuvite PO 1 tablet DAILY NOÉ Administration Pantoprazole Sodium 20 mg 08/23/19 09:00 09/05/19 08:50 Protonix PO 20 mg QAM [facility] Administrat
[2019-09-05 14:00] VITALS: BP 143/80; PULSE 74; RESP 19; TEMP 36.3; O2SAT 95
[2019-09-05 20:25] VITALS: PULSE 76
[2019-09-05] MEDS: METOPROLOL SUCCINATE EXT REL 12.5 MG TABCR PO (20:25)
[2019-09-05] MEDS: AMOXICILLIN/CLAVULANATE K 875-125 MG TAB 1 TABLET PO (20:26)
[2019-09-05] MEDS: ATORVASTATIN 40 MG TABLET PO (20:26)
[2019-09-05 21:27] VITALS: BP 125/66; PULSE 72; RESP 16; TEMP 36.1; O2SAT 97
[2019-09-06 04:55] LABS: Basophils Absolute Auto 0.1 K/mm3 (0.0-0.1); Basophils Percent Auto 0.6 % (0.2-1.2); Eosinophils Absolute Auto 0.2 K/mm3 (0-0.3); Hematocrit 41.4 % (37.0-47.0); Hemoglobin 13.2 g/dL (12.0-15.0); Immature Granulocyte Absolute 0.03 K/mm3 (0.00-0.031); Immature Granulocyte Percent A 0.4 % (0-0.5); Lymphocytes Absolute Auto 1.52 K/mm3 (0.9-3.2); Lymphocytes Percent Auto 18.9 % (18.3-44.2); Mean Corpuscular HGB Conc 31.9 g/dl (32-36); Mean Corpuscular Hemoglobin 29.3 pg (26-34); Mean Platelet Volume 11.4 fl (7.4-10.4); Monocytes Absolute Auto 0.6 K/mm3 (0.1-0.6); Monocytes Percent Auto 6.8 % (2.6-8.5); Neutrophils Absolute Auto 5.7 K/mm3 (1.3-6.7); Neutrophils Percent Auto 71.3 % (45.5-73.1); Platelet Count Result 258 k/mm3 (150-375); Red Cell Distribution Width 14.1 % (11.5-14.5)
[2019-09-06 05:22] LABS: Blood Urea Nitrogen 32 mg/dL (7-17); Calcium 9.5 mg/dL (8.4-10.2); Carbon Dioxide 32 mmol/L (22-30); Chloride 103 mmol/L (98-107); Estimated CRCL calculation 39 ml/min; Estimated Glomerular Filt Rate 55; Glucose 116 mg/dL (65-105); Sodium 139 mmol/L (137-145)
[2019-09-06 06:00] VITALS: BP 122/66; PULSE 67; RESP 16; TEMP 36.2; O2SAT 96
[2019-09-06] MEDS: ramipriL 5 MG CAPSULE 10 MG PO (08:30)
[2019-09-06] MEDS: HEPARIN SODIUM 5,000 UNITS/ML VIAL 5000 UNITS SUB-Q ×2 (08:30→20:10)
[2019-09-06] MEDS: FLUOXETINE HCL 20 MG CAP 40 MG PO (08:31)
[2019-09-06] MEDS: AMOXICILLIN/CLAVULANATE K 875-125 MG TAB 1 TABLET PO ×2 (08:31→20:10)
[2019-09-06] MEDS: PANTOPRAZOLE SOD SESQUIHYDRATE 20 MG TAB PO (08:31)
[2019-09-06] MEDS: CLOPIDOGREL BISULFATE 75 MG TABLET PO (08:31)
[2019-09-06] MEDS: FERROUS SULFATE DRIED 142 MG TABCR PO (08:31)
[2019-09-06] MEDS: OPTI-GEN TAB 1 TABLET PO (08:31)
[2019-09-06] MEDS: CHOLECALCIFEROL 1,000 UNIT TABLET 5000 UNITS PO (08:31)
[2019-09-06] MEDS: SOLIFENACIN 5 MG TABLET 10 MG PO (08:31)
[2019-09-06] MEDS: LORATADINE 10 MG TABLET PO (08:31)
[2019-09-06] MEDS: OMEGA 3 POLYUNSAT FATTY ACIDS 1 GM CAP PO ×2 (08:31→17:11)
[2019-09-06] MEDS: ASPIRIN 81 MG ENTERIC TABLET PO (08:31)
--- NOTE | 2019-09-06 10:57 | WPDNEURORHBP ---
Subjective Date/time seen: 09/06/19 10:57 Interval history: this 68-year-old woman is here on the acute rehab after sustaining a stroke of right cerebral hemisphere with left-sided hemiparesis the patient is slowly improving denies any new symptoms particularly no headaches nausea vomiting chest pain shortness of breath fever chills or sore throat or any abdominal discomfort Review of Systems Review of Systems: All systems reviewed & are unremarkable except as noted in HPI and below Functional Status Ambulation Ability Ability to Ambulate 10 Feet: Moderate Assistance X 1 Ambulation Assistive Devices: Cane, Devin Transfers Ability Ability to Transfer In/Out of Chair: Minimum Assistance X 1 Exam Const: General: comfortable and no acute distress HENMT: General nose exam: Normal nares present Mouth: Yes moist mucous membranes Eyes: General: appearance normal, both eyes and all related structures Neck: Neck: supple and no JVD Resp: Effort & Inspection: normal respiratory effort Auscultation: clear to auscultation bilaterally Cardio: Rate: regular rate Rhythm: regular rhythm GI: GI Palp: Yes Soft to palpation Auscultation: normal bowel sounds Skin: General skin exam: normal color and no rashes or lesions noted Neuro: Other: patient is awake alert will oriented times place and person has a mild dysarthria left-sided facial weakness and moderately severe left-sided hemiparesis still needing plenty of assistance for the activities of daily living however slow improvement Extrem: General: normal to inspection Psych: Mental Status: mental status grossly normal Objective Data Vital Signs Vital Signs: Vital Signs - 24 hr 09/05/19 14:00 09/05/19 20:25 09/05/19 21:27 Temperature 36.3 C L 36.1 C L Pulse Rate 74 76 72 Respiratory Rate 19 16 Blood Pressure 143/80 H 125/66 Pulse Oximetry 95 97 09/06/19 06:00 Temperature 36.2 C L Pulse Rate 67 Respiratory Rate 16 Blood Pressure 122/66 Pulse Oximetry 96 Intake/Output Intake/Output: Intake & Output 09/03/19 09/04/19 09/05/19 09/06/19 23:59 23:59 23:59 23:59 Intake Total 820 650 680 590 Balance 820 650 680 590 Meds/Results Medications: Active Medications Generic Name Dose Route Start Last Admin Trade Name Freq PRN Reason Stop Dose Admin Amoxicillin/Clavulanate Potassium 1 tablet 09/05/19 21:00 09/06/19 08:31 Augmentin 875-125 Mg Tab PO 1 tablet Q12HR NOÉ Administration Aspirin 81 mg 08/23/19 09:00 09/06/19 08:31 Aspirin Ec PO 81 mg DAILY NOÉ Administration Atorvastatin Calcium 40 mg 08/22/19 21:00 09/05/19 20:26 Lipitor PO 40 mg HS NOÉ Administration Calcium Carbonate 500 mg 08/23/19 09:00 09/06/19 08:31 Os-Margarito 500 +D Tablet PO 500 mg DAILY NOÉ Administration Clopidogrel Bisulfate 75 mg 08/23/19 09:00 09/06/19 08:31 Plavix PO 75 mg DAILY NOÉ Administration Ferrous Sulfate 142 mg 08/23/19 08:00 09/06/19 08:31 Slow Fe 142 Mg PO 142 mg DAILY@0800 NOÉ Administration Fish Oil 1 gm 08/22/19 17:00 09/06/19 08:31 Lovaza PO 1 gm BID NOÉ Administration Fluoxetine HCl 40 mg 08/23/19 09:00 09/06/19 08:31 Prozac PO 40 mg DAILY NOÉ Administration Heparin Sodium (Porcine) 5,000 units 08/23/19 21:00 09/06/19 08:30 Heparin Sodium SUB-Q 5,000 units Q12HR NOÉ Administration Loratadine 10 mg 08/23/19 09:00 09/06/19 08:31 Claritin PO 10 mg DAILY NOÉ Administration Metoprolol Succinate 12.5 mg 08/22/19 21:00 09/05/19 20:25 Toprol Xl PO 12.5 mg HS NOÉ Administration Multivitamins/Minerals 1 tablet 08/23/19 09:00 09/06/19 08:31 Ocuvite PO 1 tablet DAILY NOÉ Administration Pantoprazole Sodium 20 mg 08/23/19 09:00 09/06/19 08:31 Protonix PO 20 mg QAM NOÉ Administration Ramipril 10 mg 08/23/19 09:00 09/06/19 08:30 Altace PO 10 mg DAILY NOÉ Administration Solifenacin 10 mg 08/23/19 09:00 09/05
[2019-09-06 14:00] VITALS: BP 118/46; PULSE 72; RESP 18; TEMP 36.1; O2SAT 97
[2019-09-06 14:25] VITALS: TEMP 36.5
[2019-09-06 20:10] VITALS: PULSE 72
[2019-09-06] MEDS: METOPROLOL SUCCINATE EXT REL 12.5 MG TABCR PO (20:10)
[2019-09-06] MEDS: ATORVASTATIN 40 MG TABLET PO (20:10)
[2019-09-06 22:00] VITALS: BP 142/84; PULSE 73; RESP 18; TEMP 36.5; O2SAT 95
[2019-09-07 06:00] VITALS: BP 115/54; PULSE 71; RESP 18; TEMP 36.6; O2SAT 98
[2019-09-07] MEDS: FLUOXETINE HCL 20 MG CAP 40 MG PO (09:31)
[2019-09-07] MEDS: OMEGA 3 POLYUNSAT FATTY ACIDS 1 GM CAP PO ×2 (09:31→17:11)
[2019-09-07] MEDS: CHOLECALCIFEROL 1,000 UNIT TABLET 5000 UNITS PO (09:31)
[2019-09-07] MEDS: SOLIFENACIN 5 MG TABLET 10 MG PO (09:31)
[2019-09-07] MEDS: AMOXICILLIN/CLAVULANATE K 875-125 MG TAB 1 TABLET PO ×2 (09:31→20:35)
[2019-09-07] MEDS: OPTI-GEN TAB 1 TABLET PO (09:31)
[2019-09-07] MEDS: ASPIRIN 81 MG ENTERIC TABLET PO (09:31)
[2019-09-07] MEDS: FERROUS SULFATE DRIED 142 MG TABCR PO (09:31)
[2019-09-07] MEDS: ramipriL 5 MG CAPSULE 10 MG PO (09:31)
[2019-09-07] MEDS: LORATADINE 10 MG TABLET PO (09:31)
[2019-09-07] MEDS: CLOPIDOGREL BISULFATE 75 MG TABLET PO (09:32)
[2019-09-07] MEDS: PANTOPRAZOLE SOD SESQUIHYDRATE 20 MG TAB PO (09:32)
[2019-09-07] MEDS: HEPARIN SODIUM 5,000 UNITS/ML VIAL 5000 UNITS SUB-Q ×2 (09:32→20:39)
--- NOTE | 2019-09-07 12:12 | WPDNEURORHBP ---
Subjective Date/time seen: 09/07/19 12:12 Interval history: this 68-year-old woman is here after having had stroke of the right cerebral hemisphere with the left-sided hemiparesis mild dysarthria she is slowly improving however the arm is not doing as well as the left leg otherwise no headache no one nausea vomiting chest pain shortness of breath fever chills or sore throat Review of Systems Review of Systems: All systems reviewed & are unremarkable except as noted in HPI and below Functional Status Ambulation Ability Ability to Ambulate 10 Feet: Moderate Assistance X 1 Ambulation Assistive Devices: Cane, Devin Transfers Ability Ability to Transfer In/Out of Chair: Minimum Assistance X 1 Exam Const: General: comfortable and no acute distress HENMT: General nose exam: Normal nares present Mouth: Yes moist mucous membranes Eyes: General: appearance normal, both eyes and all related structures Neck: Neck: supple and no JVD Resp: Effort & Inspection: normal respiratory effort Auscultation: clear to auscultation bilaterally Cardio: Rate: regular rate Rhythm: regular rhythm GI: GI Palp: Yes Soft to palpation Auscultation: normal bowel sounds Skin: General skin exam: normal color and no rashes or lesions noted Neuro: Other: patient is awake and alert will oriented to time place and person has a normal speech and language functions except she has 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 almost all her life left-sided hemiparesis improving except the left arm is not doing as well as the left lower extremity Extrem: General: normal to inspection Psych: Mental Status: mental status grossly normal Objective Data Vital Signs Vital Signs: Vital Signs - 24 hr 09/06/19 14:00 09/06/19 14:25 09/06/19 20:10 Temperature 36.1 C L 36.5 C Pulse Rate 72 72 Respiratory Rate 18 Blood Pressure 118/46 L Pulse Oximetry 97 09/06/19 22:00 09/07/19 06:00 Temperature 36.5 C 36.6 C Pulse Rate 73 71 Respiratory Rate 18 18 Blood Pressure 142/84 H 115/54 L Pulse Oximetry 95 98 Intake/Output Intake/Output: Intake & Output 09/04/19 09/05/19 09/06/19 09/07/19 23:59 23:59 23:59 23:59 Intake Total 650 680 950 360 Balance 650 680 950 360 Meds/Results Medications: Active Medications Generic Name Dose Route Start Last Admin Trade Name Maria Del Carmen PRN Reason Stop Dose Admin Amoxicillin/Clavulanate Potassium 1 tablet 09/05/19 21:00 09/07/19 09:31 Augmentin 875-125 Mg Tab PO 1 tablet Q12HR NOÉ Administration Aspirin 81 mg 08/23/19 09:00 09/07/19 09:31 Aspirin Ec PO 81 mg DAILY NOÉ Administration Atorvastatin Calcium 40 mg 08/22/19 21:00 09/06/19 20:10 Lipitor PO 40 mg HS NOÉ Administration Calcium Carbonate 500 mg 08/23/19 09:00 09/07/19 09:32 Os-Margarito 500 +D Tablet PO 500 mg DAILY NOÉ Administration Clopidogrel Bisulfate 75 mg 08/23/19 09:00 09/07/19 09:32 Plavix PO 75 mg DAILY NOÉ Administration Ferrous Sulfate 142 mg 08/23/19 08:00 09/07/19 09:31 Slow Fe 142 Mg PO 142 mg DAILY@0800 NOÉ Administration Fish Oil 1 gm 08/22/19 17:00 09/07/19 09:31 Lovaza PO 1 gm BID NOÉ Administration Fluoxetine HCl 40 mg 08/23/19 09:00 09/07/19 09:31 Prozac PO 40 mg DAILY NOÉ Administration Heparin Sodium (Porcine) 5,000 units 08/23/19 21:00 09/07/19 09:32 Heparin Sodium SUB-Q 5,000 units Q12HR NOÉ Administration Loratadine 10 mg 08/23/19 09:00 09/07/19 09:31 Claritin PO 10 mg DAILY NOÉ Administration Metoprolol Succinate 12.5 mg 08/22/19 21:00 09/06/19 20:10 Toprol Xl PO 12.5 mg HS NOÉ Administration Multivitamins/Minerals 1 tablet 08/23/19 09:00 09/07/19 09:31 Ocuvite PO 1 tablet DAILY NOÉ Administration Pantoprazole Sodium 20 mg 08/23/19 09:00 09/07/19 09:32 Protonix PO 20 mg QAM NOÉ Administration Ramipril 10 mg 08/23/19 09:00 09/07/19 09:
[2019-09-07 14:00] VITALS: BP 123/57; PULSE 75; RESP 18; TEMP 36.4; O2SAT 95
--- NOTE | 2019-09-07 15:43 | PCDIET ---
Nutrition Follow-Up Complete: Nutrition Diagnosis: Inadequate energy intake related to decreased appetite as evidenced by today's lunch consumption (50%) and statement by patient and . Nutrition Goal: Patient will consume greater than 75% of all meals and acceptance of Enlive. Goal met. Patient consuming ~80% of meals, on average, on soft and bite size diet with Ensure Enlive 1x daily. Patient reports good appetite; denies concerns and would like to continue to receive Enlive. Last recorded weight is 63.6 kg. Recommend obtaining new weight. Bowel Motility: Last documented bowel movement on 09/06/19. Labs Reviewed: Glu (116), BUN (32) Meds Noted: Augmentin, Ferrous Sulfate, Oscal + D, Ocuvite, Protonix, Vitamin D Additional Notes: No documented skin breakdown. Will continue to monitor with same goals. Nutrition Monitoring and Evaluation: Will monitor intake. Will follow up in 7 days.
[2019-09-07] MEDS: ATORVASTATIN 40 MG TABLET PO (20:39)
[2019-09-07 20:40] VITALS: PULSE 66
[2019-09-07] MEDS: METOPROLOL SUCCINATE EXT REL 12.5 MG TABCR PO (20:40)
[2019-09-07 22:00] VITALS: BP 116/52; PULSE 75; RESP 18; TEMP 36.7; O2SAT 97
[2019-09-08 06:00] VITALS: BP 112/48; PULSE 70; RESP 18; TEMP 36.6; O2SAT 96
[2019-09-08] MEDS: OMEGA 3 POLYUNSAT FATTY ACIDS 1 GM CAP PO ×2 (09:00→17:35)
[2019-09-08] MEDS: AMOXICILLIN/CLAVULANATE K 875-125 MG TAB 1 TABLET PO ×2 (09:00→20:51)
[2019-09-08] MEDS: FERROUS SULFATE DRIED 142 MG TABCR PO (09:00)
[2019-09-08] MEDS: SOLIFENACIN 5 MG TABLET 10 MG PO (09:00)
[2019-09-08] MEDS: ASPIRIN 81 MG ENTERIC TABLET PO (09:01)
[2019-09-08] MEDS: HEPARIN SODIUM 5,000 UNITS/ML VIAL 5000 UNITS SUB-Q ×2 (09:01→20:51)
[2019-09-08] MEDS: LORATADINE 10 MG TABLET PO (09:01)
[2019-09-08] MEDS: OPTI-GEN TAB 1 TABLET PO (09:01)
[2019-09-08] MEDS: CHOLECALCIFEROL 1,000 UNIT TABLET 5000 UNITS PO (09:02)
[2019-09-08] MEDS: FLUOXETINE HCL 20 MG CAP 40 MG PO (09:02)
[2019-09-08] MEDS: PANTOPRAZOLE SOD SESQUIHYDRATE 20 MG TAB PO (09:03)
[2019-09-08] MEDS: ramipriL 5 MG CAPSULE 10 MG PO (09:03)
[2019-09-08] MEDS: CLOPIDOGREL BISULFATE 75 MG TABLET PO (09:03)
[2019-09-08 14:00] VITALS: BP 98/41; PULSE 73; RESP 16; TEMP 36.1; O2SAT 99
--- NOTE | 2019-09-08 15:32 | WPDNEURORHBP ---
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 which is slowly improving however the arm legs behind the leg she still needs lot of assistance in the activities of daily living but certainly is improving she denies any headache nausea vomiting double vision blurred vision or any new weakness fever chills sore throat Review of Systems Review of Systems: All systems reviewed & are unremarkable except as noted in HPI and below Functional Status Ambulation Ability Ability to Ambulate 10 Feet: Moderate Assistance X 1 Ambulation Assistive Devices: Cane, Devin Transfers Ability Ability to Transfer In/Out of Chair: Minimum Assistance X 1 Exam Const: General: comfortable and no acute distress HENMT: General nose exam: Normal nares present Mouth: Yes moist mucous membranes Eyes: General: appearance normal, both eyes and all related structures Neck: Neck: supple and no JVD Resp: Effort & Inspection: normal respiratory effort Auscultation: clear to auscultation bilaterally Cardio: Rate: regular rate Rhythm: regular rhythm GI: GI Palp: Yes Soft to palpation Auscultation: normal bowel sounds Skin: General skin exam: normal color and no rashes or lesions noted Neuro: Other: patient is awake alert but oriented times place and person is speech and language functions are normal left-sided hemiparesis is improving Extrem: General: normal to inspection Psych: Mental Status: mental status grossly normal Objective Data Vital Signs Vital Signs: Vital Signs - 24 hr 09/07/19 20:40 09/07/19 22:00 09/08/19 06:00 Temperature 36.7 C 36.6 C Pulse Rate 66 75 70 Respiratory Rate 18 18 Blood Pressure 116/52 L 112/48 L Pulse Oximetry 97 96 Intake/Output Intake/Output: Intake & Output 09/05/19 09/06/19 09/07/19 09/08/19 23:59 23:59 23:59 23:59 Intake Total 680 950 600 480 Balance 680 950 600 480 Meds/Results Medications: Active Medications Generic Name Dose Route Start Last Admin Trade Name Freq PRN Reason Stop Dose Admin Amoxicillin/Clavulanate Potassium 1 tablet 09/05/19 21:00 09/08/19 09:00 Augmentin 875-125 Mg Tab PO 1 tablet Q12HR NOÉ Administration Aspirin 81 mg 08/23/19 09:00 09/08/19 09:01 Aspirin Ec PO 81 mg DAILY NOÉ Administration Atorvastatin Calcium 40 mg 08/22/19 21:00 09/07/19 20:39 Lipitor PO 40 mg HS NOÉ Administration Calcium Carbonate 500 mg 08/23/19 09:00 09/08/19 09:02 Os-Margarito 500 +D Tablet PO 500 mg DAILY NOÉ Administration Clopidogrel Bisulfate 75 mg 08/23/19 09:00 09/08/19 09:03 Plavix PO 75 mg DAILY NOÉ Administration Ferrous Sulfate 142 mg 08/23/19 08:00 09/08/19 09:00 Slow Fe 142 Mg PO 142 mg DAILY@0800 NOÉ Administration Fish Oil 1 gm 08/22/19 17:00 09/08/19 09:00 Lovaza PO 1 gm BID NOÉ Administration Fluoxetine HCl 40 mg 08/23/19 09:00 09/08/19 09:02 Prozac PO 40 mg DAILY NOÉ Administration Heparin Sodium (Porcine) 5,000 units 08/23/19 21:00 09/08/19 09:01 Heparin Sodium SUB-Q 5,000 units Q12HR NOÉ Administration Loratadine 10 mg 08/23/19 09:00 09/08/19 09:01 Claritin PO 10 mg DAILY NOÉ Administration Metoprolol Succinate 12.5 mg 08/22/19 21:00 09/07/19 20:40 Toprol Xl PO 12.5 mg HS NOÉ Administration Multivitamins/Minerals 1 tablet 08/23/19 09:00 09/08/19 09:01 Ocuvite PO 1 tablet DAILY NOÉ Administration Pantoprazole Sodium 20 mg 08/23/19 09:00 09/08/19 09:03 Protonix PO 20 mg QAM NOÉ Administration Ramipril 10 mg 08/23/19 09:00 09/08/19 09:03 Altace PO 10 mg DAILY NOÉ Administration Solifenacin 10 mg 08/23/19 09:00 09/08/19 09:00 Vesicare PO 10 mg DAILY NOÉ Administration Vitamin D 5,000 unit 08/23/19 09:00 09/08/19 09:02 Vitamin D PO 5,000 unit
[2019-09-08 20:51] VITALS: PULSE 72
[2019-09-08] MEDS: METOPROLOL SUCCINATE EXT REL 12.5 MG TABCR PO (20:51)
[2019-09-08] MEDS: ATORVASTATIN 40 MG TABLET PO (20:51)
[2019-09-08 22:00] VITALS: BP 121/59; PULSE 72; RESP 17; TEMP 36.4; O2SAT 95
[2019-09-09 06:00] VITALS: BP 121/56; PULSE 74; RESP 17; TEMP 36.4; O2SAT 95
[2019-09-09] MEDS: ASPIRIN 81 MG ENTERIC TABLET PO (09:09)
[2019-09-09] MEDS: CHOLECALCIFEROL 1,000 UNIT TABLET 5000 UNITS PO (09:09)
[2019-09-09] MEDS: AMOXICILLIN/CLAVULANATE K 875-125 MG TAB 1 TABLET PO ×2 (09:09→20:12)
[2019-09-09] MEDS: FERROUS SULFATE DRIED 142 MG TABCR PO (09:09)
[2019-09-09] MEDS: PANTOPRAZOLE SOD SESQUIHYDRATE 20 MG TAB PO (09:10)
[2019-09-09] MEDS: OMEGA 3 POLYUNSAT FATTY ACIDS 1 GM CAP PO ×2 (09:10→17:46)
[2019-09-09] MEDS: LORATADINE 10 MG TABLET PO (09:10)
[2019-09-09] MEDS: OPTI-GEN TAB 1 TABLET PO (09:10)
[2019-09-09] MEDS: CLOPIDOGREL BISULFATE 75 MG TABLET PO (09:10)
[2019-09-09] MEDS: ramipriL 5 MG CAPSULE 10 MG PO (09:10)
[2019-09-09] MEDS: FLUOXETINE HCL 20 MG CAP 40 MG PO (09:10)
[2019-09-09] MEDS: SOLIFENACIN 5 MG TABLET 10 MG PO (09:11)
[2019-09-09] MEDS: HEPARIN SODIUM 5,000 UNITS/ML VIAL 5000 UNITS SUB-Q ×2 (09:11→20:13)
[2019-09-09 14:00] VITALS: BP 113/51; PULSE 72; RESP 18; TEMP 36.1; O2SAT 98
--- NOTE | 2019-09-09 15:43 | WPDNEURORHBP ---
Subjective Date/time seen: 09/09/19 15:43 Interval history: this 68-year-old woman is here after having had a stroke which has left her with the left-sided hemiparesis of moderately severe degree she is improving however the arm is lagging behind the leg she does not have any new specific complaints she is not usually a complainer denies any headache nausea vomiting chest pain shortness of breath fever chills or sore throat Patient is a being treated for urinary tract infection with Augmentin and I am hoping to discontinue with a total of 7 to 10 days depending how she does Review of Systems Review of Systems: All systems reviewed & are unremarkable except as noted in HPI and below Functional Status Ambulation Ability Ability to Ambulate 10 Feet: Moderate Assistance X 1 Ambulation Assistive Devices: Cane, Devin Transfers Ability Ability to Transfer In/Out of Chair: Minimum Assistance X 1 Exam Const: General: comfortable and no acute distress HENMT: General nose exam: Normal nares present Mouth: Yes moist mucous membranes Eyes: General: appearance normal, both eyes and all related structures Neck: Neck: supple and no JVD Resp: Effort & Inspection: normal respiratory effort Auscultation: clear to auscultation bilaterally Cardio: Rate: regular rate Rhythm: regular rhythm GI: GI Palp: Yes Soft to palpation Auscultation: normal bowel sounds Skin: General skin exam: normal color and no rashes or lesions noted Neuro: Other: off patient is awake alert over 80 time present person the speech language functions are normal except the 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 a see him a paresis is improving overall and she is engage in therapy and doing fairly well Extrem: General: normal to inspection Psych: Mental Status: mental status grossly normal Objective Data Vital Signs Vital Signs: Vital Signs - 24 hr 09/08/19 20:51 09/08/19 22:00 09/09/19 06:00 Temperature 36.4 C 36.4 C Pulse Rate 72 72 74 Respiratory Rate 17 17 Blood Pressure 121/59 L 121/56 L Pulse Oximetry 95 95 09/09/19 14:00 Temperature 36.1 C L Pulse Rate 72 Respiratory Rate 18 Blood Pressure 113/51 L Pulse Oximetry 98 Intake/Output Intake/Output: Intake & Output 09/06/19 09/07/19 09/08/19 09/09/19 23:59 23:59 23:59 23:59 Intake Total 950 600 720 840 Balance 950 600 720 840 Meds/Results Medications: Active Medications Generic Name Dose Route Start Last Admin Trade Name Maria Del Carmen PRN Reason Stop Dose Admin Amoxicillin/Clavulanate Potassium 1 tablet 09/05/19 21:00 09/09/19 09:09 Augmentin 875-125 Mg Tab PO 1 tablet Q12HR NOÉ Administration Aspirin 81 mg 08/23/19 09:00 09/09/19 09:09 Aspirin Ec PO 81 mg DAILY NOÉ Administration Atorvastatin Calcium 40 mg 08/22/19 21:00 09/08/19 20:51 Lipitor PO 40 mg HS NOÉ Administration Calcium Carbonate 500 mg 08/23/19 09:00 09/09/19 09:09 Os-Margarito 500 +D Tablet PO 500 mg DAILY NOÉ Administration Clopidogrel Bisulfate 75 mg 08/23/19 09:00 09/09/19 09:10 Plavix PO 75 mg DAILY NOÉ Administration Ferrous Sulfate 142 mg 08/23/19 08:00 09/09/19 09:09 Slow Fe 142 Mg PO 142 mg DAILY@0800 NOÉ Administration Fish Oil 1 gm 08/22/19 17:00 09/09/19 09:10 Lovaza PO 1 gm BID NOÉ Administration Fluoxetine HCl 40 mg 08/23/19 09:00 09/09/19 09:10 Prozac PO 40 mg DAILY NOÉ Administration Heparin Sodium (Porcine) 5,000 units 08/23/19 21:00 09/09/19 09:11 Heparin Sodium SUB-Q 5,000 units Q12HR NOÉ Administration Loratadine 10 mg 08/23/19 09:00 09/09/19 09:10 Claritin PO 10 mg DAILY NOÉ Administration Metoprolol Succinate 12.5 mg 08/22/19 21:00 09/08/19 20:51 Toprol Xl PO 12.5 mg HS NOÉ Administration Multivitamins/Minerals 1 tablet 08/23/19 09:00 09/09/19 09:10 Ocuvite PO 1 tablet DAILY NOÉ Administration
[2019-09-09 20:11] VITALS: PULSE 72
[2019-09-09] MEDS: METOPROLOL SUCCINATE EXT REL 12.5 MG TABCR PO (20:11)
[2019-09-09] MEDS: ATORVASTATIN 40 MG TABLET PO (20:11)
[2019-09-09 21:20] VITALS: BP 121/53; PULSE 68; RESP 16; TEMP 36.5; O2SAT 95
[2019-09-10 06:00] VITALS: BP 117/44; PULSE 70; RESP 20; TEMP 36.1; O2SAT 97
[2019-09-10] MEDS: SOLIFENACIN 5 MG TABLET 10 MG PO (10:11)
[2019-09-10] MEDS: FERROUS SULFATE DRIED 142 MG TABCR PO (10:12)
[2019-09-10] MEDS: PANTOPRAZOLE SOD SESQUIHYDRATE 20 MG TAB PO (10:12)
[2019-09-10] MEDS: ASPIRIN 81 MG ENTERIC TABLET PO (10:12)
[2019-09-10] MEDS: OMEGA 3 POLYUNSAT FATTY ACIDS 1 GM CAP PO ×2 (10:12→17:40)
[2019-09-10] MEDS: CHOLECALCIFEROL 1,000 UNIT TABLET 5000 UNITS PO (10:12)
[2019-09-10] MEDS: OPTI-GEN TAB 1 TABLET PO (10:13)
[2019-09-10] MEDS: FLUOXETINE HCL 20 MG CAP 40 MG PO (10:13)
[2019-09-10] MEDS: ramipriL 5 MG CAPSULE 10 MG PO (10:13)
[2019-09-10] MEDS: LORATADINE 10 MG TABLET PO (10:13)
[2019-09-10] MEDS: AMOXICILLIN/CLAVULANATE K 875-125 MG TAB 1 TABLET PO ×2 (10:13→20:07)
[2019-09-10] MEDS: HEPARIN SODIUM 5,000 UNITS/ML VIAL 5000 UNITS SUB-Q ×2 (10:14→20:13)
[2019-09-10] MEDS: CLOPIDOGREL BISULFATE 75 MG TABLET PO (10:14)
--- NOTE | 2019-09-10 11:32 | WPDNEURORHBP ---
Subjective Date/time seen: left hemiparesis with UTI09/10/19 11:32 Review of Systems Review of Systems: All systems reviewed & are unremarkable except as noted in HPI and below Functional Status Ambulation Ability Ability to Ambulate 10 Feet: Moderate Assistance X 1 Ability to Ambulate 50 Feet With 2 Turns: Moderate Assistance X 1 Ambulation Assistive Devices: Cane, Devin Transfers Ability Ability to Transfer In/Out of Chair: Minimum Assistance X 1 Exam Const: General: cooperative, comfortable and no acute distress Nutritional Appearance: average body habitus Orientation/consciousness: oriented to person, oriented to place and oriented to time Limitations: no limitations (cleft lip related chronic speech dysfunction) Eyes: General: appearance normal, both eyes and all related structures Neck: Neck: full ROM Chest: Chest palpation & inspection: normal inspection of the chest Resp: Effort & Inspection: able to speak in complete sentences Cardio: Rate: regular rate Rhythm: regular rhythm GI: Auscultation: normal bowel sounds Skin: General skin exam: no rashes or lesions noted Neuro: General: patient oriented x3 and moves all extremities Cranial nerves: Yes Equal, round and reactive pupils present, Yes Nystagmus not present, Yes Midline tongue present, Yes Symmetric palate elevation present, Yes Normal hearing present and Yes Ability to bilaterally rotate head present Cognition (Neuro): normal cognition Speech: normal speech (abnormal) Motor exam (neuro): 5/5 motor strength present throughout (left hemiparesis) Deep tendon reflexes (DTR's): Right triceps reflex intensity grade: 1+, Left triceps reflex intensity grade: 2+, Rt Biceps (C5, C6): 1+, Left biceps reflex intensity grade: 2+, Right brachioradialis reflex intensity grade: 1+, Left brachioradialis reflex intensity grade: 2+, Right patellar reflex intensity grade: 1+, Left patellar reflex intensity grade: 2+, Right ankle reflex intensity grade: 1+ and Left ankle reflex intensity grade: 2+ Plantar Reflex Responses: upgoing (positive Babinski): left Psych: Appearance: grossly normal Objective Data Vital Signs Vital Signs: Vital Signs - 24 hr 09/09/19 14:00 09/09/19 20:11 09/09/19 21:20 Temperature 36.1 C L 36.5 C Pulse Rate 72 72 68 Respiratory Rate 18 16 Blood Pressure 113/51 L 121/53 L Pulse Oximetry 98 95 09/10/19 06:00 Temperature 36.1 C L Pulse Rate 70 Respiratory Rate 20 Blood Pressure 117/44 L Pulse Oximetry 97 Intake/Output Intake/Output: Intake & Output 09/07/19 09/08/19 09/09/19 09/10/19 23:59 23:59 23:59 23:59 Intake Total 047 537 8280 240 Balance 999 043 0705 240 Meds/Results Medications: Active Medications Generic Name Dose Route Start Last Admin Trade Name Maria Del Carmen PRN Reason Stop Dose Admin Amoxicillin/Clavulanate Potassium 1 tablet 09/05/19 21:00 09/10/19 10:13 Augmentin 875-125 Mg Tab PO 1 tablet Q12HR NOÉ Administration Aspirin 81 mg 08/23/19 09:00 09/10/19 10:12 Aspirin Ec PO 81 mg DAILY NOÉ Administration Atorvastatin Calcium 40 mg 08/22/19 21:00 09/09/19 20:11 Lipitor PO 40 mg HS NOÉ Administration Calcium Carbonate 500 mg 08/23/19 09:00 09/10/19 10:13 Os-Margarito 500 +D Tablet PO 500 mg DAILY NOÉ Administration Clopidogrel Bisulfate 75 mg 08/23/19 09:00 09/10/19 10:14 Plavix PO 75 mg DAILY NOÉ Administration Ferrous Sulfate 142 mg 08/23/19 08:00 09/10/19 10:12 Slow Fe 142 Mg PO 142 mg DAILY@0800 NOÉ Administration Fish Oil 1 gm 08/22/19 17:00 09/10/19 10:12 Lovaza PO 1 gm BID NOÉ Administration Fluoxetine HCl 40 mg 08/23/19 09:00 09/10/19 10:13 Prozac PO 40 mg DAILY NOÉ Administration Heparin Sodium (Porcine) 5,000 units 08/23/19 21:00 09/10/19 10:14 Heparin Sodium SUB-Q 5,000 units Q12HR NOÉ Administration Loratadine 10 mg 08/23/19 09:00 09/10/19 10:13 Claritin PO 10 mg DAILY NOÉ Adminis
[2019-09-10 14:00] VITALS: BP 107/58; PULSE 74; RESP 18; TEMP 36.4; O2SAT 100
[2019-09-10] MEDS: ATORVASTATIN 40 MG TABLET PO (20:07)
[2019-09-10 20:15] VITALS: PULSE 72
[2019-09-10] MEDS: METOPROLOL SUCCINATE EXT REL 12.5 MG TABCR PO (20:15)
[2019-09-10 22:00] VITALS: BP 132/71; PULSE 74; RESP 18; TEMP 36.4; O2SAT 94
[2019-09-11 06:00] VITALS: BP 120/71; PULSE 61; RESP 18; TEMP 36.1; O2SAT 93
[2019-09-11] MEDS: ASPIRIN 81 MG ENTERIC TABLET PO (09:31)
[2019-09-11] MEDS: CHOLECALCIFEROL 1,000 UNIT TABLET 5000 UNITS PO (09:31)
[2019-09-11] MEDS: FERROUS SULFATE DRIED 142 MG TABCR PO (09:31)
[2019-09-11] MEDS: AMOXICILLIN/CLAVULANATE K 875-125 MG TAB 1 TABLET PO ×2 (09:31→20:20)
[2019-09-11] MEDS: FLUOXETINE HCL 20 MG CAP 40 MG PO (09:32)
[2019-09-11] MEDS: OMEGA 3 POLYUNSAT FATTY ACIDS 1 GM CAP PO ×2 (09:32→17:05)
[2019-09-11] MEDS: LORATADINE 10 MG TABLET PO (09:32)
[2019-09-11] MEDS: PANTOPRAZOLE SOD SESQUIHYDRATE 20 MG TAB PO (09:32)
[2019-09-11] MEDS: CLOPIDOGREL BISULFATE 75 MG TABLET PO (09:32)
[2019-09-11] MEDS: OPTI-GEN TAB 1 TABLET PO (09:32)
[2019-09-11] MEDS: ramipriL 5 MG CAPSULE 10 MG PO (09:33)
[2019-09-11] MEDS: SOLIFENACIN 5 MG TABLET 10 MG PO (09:33)
[2019-09-11] MEDS: HEPARIN SODIUM 5,000 UNITS/ML VIAL 5000 UNITS SUB-Q ×2 (09:33→20:21)
--- NOTE | 2019-09-11 10:47 | WPDNEURORHBP ---
Subjective Date/time seen: 09/11/19 10:47 Interval history: this 68-year-old woman is here after having had stroke of the right 7 hemisphere which has left her with left-sided hemiparesis patient is improving however slowly I suspect there is a motivational factor and underlying depression for which she already on relatively large dose of Prozac. The patient herself denies any particular complaints she is walking 50 feet with a him I walker which is better than the last week she is also on 30 day monitor which the will taken back to the people who have put the monitor on at the tertiary care facility She denies any headache nausea vomiting chest pain shortness of breath fever chills or sore throat Review of Systems Review of Systems: All systems reviewed & are unremarkable except as noted in HPI and below Functional Status Ambulation Ability Ability to Ambulate 10 Feet: Moderate Assistance X 1 Ability to Ambulate 50 Feet With 2 Turns: Moderate Assistance X 1 Ambulation Assistive Devices: Cane, Devin Transfers Ability Ability to Transfer In/Out of Chair: Minimum Assistance X 1 Exam Const: General: comfortable and no acute distress HENMT: General nose exam: Normal nares present Mouth: Yes moist mucous membranes Eyes: General: appearance normal, both eyes and all related structures Neck: Neck: supple and no JVD Resp: Effort & Inspection: normal respiratory effort Auscultation: clear to auscultation bilaterally Cardio: Rate: regular rate Rhythm: regular rhythm GI: GI Palp: Yes Soft to palpation Auscultation: normal bowel sounds Skin: General skin exam: normal color and no rashes or lesions noted Neuro: Other: patient is awake alert well oriented time ++speech language functions are normal cranial examination reveals left-sided facial weakness and moderately severe left-sided hemiparesis which is improving however the arm is lagging behind the leg overall is of slow improvement and she is making progress Extrem: General: normal to inspection Psych: Mental Status: mental status grossly normal Objective Data Vital Signs Vital Signs: Vital Signs - 24 hr 09/10/19 14:00 09/10/19 20:15 09/10/19 22:00 Temperature 36.4 C 36.4 C L Pulse Rate 74 72 74 Respiratory Rate 18 18 Blood Pressure 107/58 L 132/71 Pulse Oximetry 100 94 09/11/19 06:00 Temperature 36.1 C L Pulse Rate 61 Respiratory Rate 18 Blood Pressure 120/71 Pulse Oximetry 93 Intake/Output Intake/Output: Intake & Output 09/08/19 09/09/19 09/10/19 09/11/19 23:59 23:59 23:59 23:59 Intake Total 720 1080 720 240 Balance 720 1080 720 240 Meds/Results Medications: Active Medications Generic Name Dose Route Start Last Admin Trade Name Maria Del Carmen PRN Reason Stop Dose Admin Amoxicillin/Clavulanate Potassium 1 tablet 09/05/19 21:00 09/11/19 09:31 Augmentin 875-125 Mg Tab PO 1 tablet Q12HR NOÉ Administration Aspirin 81 mg 08/23/19 09:00 09/11/19 09:31 Aspirin Ec PO 81 mg DAILY NOÉ Administration Atorvastatin Calcium 40 mg 08/22/19 21:00 09/10/19 20:07 Lipitor PO 40 mg HS NOÉ Administration Calcium Carbonate 500 mg 08/23/19 09:00 09/11/19 09:31 Os-Margarito 500 +D Tablet PO 500 mg DAILY NOÉ Administration Clopidogrel Bisulfate 75 mg 08/23/19 09:00 09/11/19 09:32 Plavix PO 75 mg DAILY NOÉ Administration Ferrous Sulfate 142 mg 08/23/19 08:00 09/11/19 09:31 Slow Fe 142 Mg PO 142 mg DAILY@0800 NOÉ Administration Fish Oil 1 gm 08/22/19 17:00 09/11/19 09:32 Lovaza PO 1 gm BID NOÉ Administration Fluoxetine HCl 40 mg 08/23/19 09:00 09/11/19 09:32 Prozac PO 40 mg DAILY NOÉ Administration Heparin Sodium (Porcine) 5,000 units 08/23/19 21:00 09/11/19 09:33 Heparin Sodium SUB-Q 5,000 units Q12HR NOÉ Administration Loratadine 10 mg 08/23/19 09:00 09/11/19 09:32 Claritin PO 10 mg DAILY NOÉ Administration Metoprolol Succinate 12.5 mg 03
[2019-09-11 14:00] VITALS: BP 126/53; PULSE 72; RESP 18; TEMP 35.8; O2SAT 95
[2019-09-11 20:21] VITALS: PULSE 70
[2019-09-11] MEDS: METOPROLOL SUCCINATE EXT REL 12.5 MG TABCR PO (20:21)
[2019-09-11] MEDS: ATORVASTATIN 40 MG TABLET PO (20:21)
[2019-09-11 22:00] VITALS: BP 117/55; PULSE 77; RESP 18; TEMP 36.9; O2SAT 93
[2019-09-12 06:00] VITALS: BP 117/58; PULSE 63; RESP 17; TEMP 36.6; O2SAT 97
[2019-09-12] MEDS: ASPIRIN 81 MG ENTERIC TABLET PO (09:13)
[2019-09-12] MEDS: FERROUS SULFATE DRIED 142 MG TABCR PO (09:13)
[2019-09-12] MEDS: AMOXICILLIN/CLAVULANATE K 875-125 MG TAB 1 TABLET PO ×2 (09:13→20:54)
[2019-09-12] MEDS: CHOLECALCIFEROL 1,000 UNIT TABLET 5000 UNITS PO (09:13)
[2019-09-12] MEDS: OMEGA 3 POLYUNSAT FATTY ACIDS 1 GM CAP PO ×2 (09:14→17:19)
[2019-09-12] MEDS: LORATADINE 10 MG TABLET PO (09:14)
[2019-09-12] MEDS: OPTI-GEN TAB 1 TABLET PO (09:14)
[2019-09-12] MEDS: PANTOPRAZOLE SOD SESQUIHYDRATE 20 MG TAB PO (09:14)
[2019-09-12] MEDS: CLOPIDOGREL BISULFATE 75 MG TABLET PO (09:14)
[2019-09-12] MEDS: FLUOXETINE HCL 20 MG CAP 40 MG PO (09:14)
[2019-09-12] MEDS: HEPARIN SODIUM 5,000 UNITS/ML VIAL 5000 UNITS SUB-Q ×2 (09:15→20:58)
[2019-09-12] MEDS: SOLIFENACIN 5 MG TABLET 10 MG PO (09:15)
[2019-09-12] MEDS: ramipriL 5 MG CAPSULE 10 MG PO (09:33)
--- NOTE | 2019-09-12 11:57 | WPDNEURORHBP ---
Subjective Date/time seen: 09/12/19 11:57 Interval history: this 68-year-old woman is here on the acute rehab with left-sided hemiparesis from which she is slowly improving she is also working with our speech therapy and doing better than the last week denies any headache nausea vomiting chest pain shortness of breath fever chills or sore throat Review of Systems Review of Systems: All systems reviewed & are unremarkable except as noted in HPI and below Functional Status Ambulation Ability Ability to Ambulate 10 Feet: Moderate Assistance X 1 Ability to Ambulate 50 Feet With 2 Turns: Moderate Assistance X 1 Ambulation Assistive Devices: Cane, Devin Transfers Ability Ability to Transfer In/Out of Chair: Minimum Assistance X 1 Exam Const: General: comfortable and no acute distress HENMT: General nose exam: Normal nares present Mouth: Yes moist mucous membranes Eyes: General: appearance normal, both eyes and all related structures Neck: Neck: supple and no JVD Resp: Effort & Inspection: normal respiratory effort Auscultation: clear to auscultation bilaterally Cardio: Rate: regular rate Rhythm: regular rhythm GI: GI Palp: Yes Soft to palpation Auscultation: normal bowel sounds Skin: General skin exam: normal color and no rashes or lesions noted Neuro: Other: patient is awake alert and well oriented time place and person has mild dysphonia and dysarthria and she is working with the speech pathologist left-sided hemiparesis is slowly improving however still needing assistance in all the activities of daily living Extrem: General: normal to inspection Psych: Mental Status: mental status grossly normal Objective Data Vital Signs Vital Signs: Vital Signs - 24 hr 09/11/19 14:00 09/11/19 20:21 09/11/19 22:00 Temperature 35.8 C L 36.9 C Pulse Rate 72 70 77 Respiratory Rate 18 18 Blood Pressure 126/53 L 117/55 L Pulse Oximetry 95 93 09/12/19 06:00 Temperature 36.6 C Pulse Rate 63 Respiratory Rate 17 Blood Pressure 117/58 L Pulse Oximetry 97 Intake/Output Intake/Output: Intake & Output 09/09/19 09/10/19 09/11/19 09/12/19 23:59 23:59 23:59 23:59 Intake Total 1080 720 720 720 Balance 1080 720 720 720 Meds/Results Medications: Active Medications Generic Name Dose Route Start Last Admin Trade Name Freq PRN Reason Stop Dose Admin Amoxicillin/Clavulanate Potassium 1 tablet 09/05/19 21:00 09/12/19 09:13 Augmentin 875-125 Mg Tab PO 1 tablet Q12HR NOÉ Administration Aspirin 81 mg 08/23/19 09:00 09/12/19 09:13 Aspirin Ec PO 81 mg DAILY NOÉ Administration Atorvastatin Calcium 40 mg 08/22/19 21:00 09/11/19 20:21 Lipitor PO 40 mg HS NÉO Administration Calcium Carbonate 500 mg 08/23/19 09:00 09/12/19 09:13 Os-Margarito 500 +D Tablet PO 500 mg DAILY NOÉ Administration Clopidogrel Bisulfate 75 mg 08/23/19 09:00 09/12/19 09:14 Plavix PO 75 mg DAILY NOÉ Administration Ferrous Sulfate 142 mg 08/23/19 08:00 09/12/19 09:13 Slow Fe 142 Mg PO 142 mg DAILY@0800 NOÉ Administration Fish Oil 1 gm 08/22/19 17:00 09/12/19 09:14 Lovaza PO 1 gm BID NOÉ Administration Fluoxetine HCl 40 mg 08/23/19 09:00 09/12/19 09:14 Prozac PO 40 mg DAILY NOÉ Administration Heparin Sodium (Porcine) 5,000 units 08/23/19 21:00 09/12/19 09:15 Heparin Sodium SUB-Q 5,000 units Q12HR NOÉ Administration Loratadine 10 mg 08/23/19 09:00 09/12/19 09:14 Claritin PO 10 mg DAILY NOÉ Administration Metoprolol Succinate 12.5 mg 08/22/19 21:00 09/11/19 20:21 Toprol Xl PO 12.5 mg HS NOÉ Administration Multivitamins/Minerals 1 tablet 08/23/19 09:00 09/12/19 09:14 Ocuvite PO 1 tablet DAILY NOÉ Administration Pantoprazole Sodium 20 mg 08/23/19 09:00 09/12/19 09:14 Protonix PO 20 mg QAM NOÉ Administration Ramipril 10 mg 08/23/19 09:00 09/12/19 09:33 Altace PO 10 mg DAILY NOÉ Administr
[2019-09-12 14:00] VITALS: BP 114/54; PULSE 66; RESP 18; TEMP 36.8; O2SAT 99
[2019-09-12 20:40] VITALS: PULSE 68; RESP 20; O2SAT 95
[2019-09-12] MEDS: ATORVASTATIN 40 MG TABLET PO (20:54)
[2019-09-12 20:56] VITALS: PULSE 72
[2019-09-12] MEDS: METOPROLOL SUCCINATE EXT REL 12.5 MG TABCR PO (20:56)
[2019-09-12 21:40] VITALS: BP 115/48; PULSE 68; RESP 20; TEMP 36.1; O2SAT 95
[2019-09-13 04:50] LABS: Basophils Percent Auto 0.5 % (0.2-1.2); Eosinophils Absolute Auto 0.2 K/mm3 (0-0.3); Eosinophils Percent Auto 2.4 % (0-4.4); Hematocrit 42.9 % (37.0-47.0); Hemoglobin 14.1 g/dL (12.0-15.0); Immature Granulocyte Absolute 0.02 K/mm3 (0.00-0.031); Immature Granulocyte Percent A 0.3 % (0-0.5); Lymphocytes Absolute Auto 1.79 K/mm3 (0.9-3.2); Lymphocytes Percent Auto 22.6 % (18.3-44.2); Mean Corpuscular HGB Conc 32.9 g/dl (32-36); Mean Corpuscular Hemoglobin 29.6 pg (26-34); Mean Corpuscular Volume 90.1 fl (80-100); Mean Platelet Volume 11.7 fl (7.4-10.4); Monocytes Absolute Auto 0.5 K/mm3 (0.1-0.6); Monocytes Percent Auto 6.7 % (2.6-8.5); Neutrophils Absolute Auto 5.4 K/mm3 (1.3-6.7); Neutrophils Percent Auto 67.5 % (45.5-73.1); Platelet Count Result 248 k/mm3 (150-375); Red Blood Count 4.76 M/mm3 (4.2-5.4); Red Cell Distribution Width 13.9 % (11.5-14.5); White Blood Count 7.9 K/mm3 (4.5-10.0)
[2019-09-13 05:01] LABS: Blood Urea Nitrogen 32 mg/dL (7-17); Calcium 9.6 mg/dL (8.4-10.2); Carbon Dioxide 31 mmol/L (22-30); Chloride 102 mmol/L (98-107); Estimated CRCL calculation 48 ml/min; Estimated Glomerular Filt Rate > 60; Glucose 110 mg/dL (65-105); Sodium 138 mmol/L (137-145)
[2019-09-13 06:00] VITALS: BP 136/74; PULSE 75; RESP 16; TEMP 36.6; O2SAT 97
[2019-09-13] MEDS: FERROUS SULFATE DRIED 142 MG TABCR PO (09:15)
[2019-09-13] MEDS: AMOXICILLIN/CLAVULANATE K 875-125 MG TAB 1 TABLET PO ×2 (09:15→20:41)
[2019-09-13] MEDS: ASPIRIN 81 MG ENTERIC TABLET PO (09:16)
[2019-09-13] MEDS: CHOLECALCIFEROL 1,000 UNIT TABLET 5000 UNITS PO (09:16)
[2019-09-13] MEDS: CLOPIDOGREL BISULFATE 75 MG TABLET PO (09:16)
[2019-09-13] MEDS: FLUOXETINE HCL 20 MG CAP 40 MG PO (09:17)
[2019-09-13] MEDS: LORATADINE 10 MG TABLET PO (09:17)
[2019-09-13] MEDS: HEPARIN SODIUM 5,000 UNITS/ML VIAL 5000 UNITS SUB-Q ×2 (09:17→20:42)
[2019-09-13] MEDS: OPTI-GEN TAB 1 TABLET PO (09:18)
[2019-09-13] MEDS: ramipriL 5 MG CAPSULE 10 MG PO (09:18)
[2019-09-13] MEDS: OMEGA 3 POLYUNSAT FATTY ACIDS 1 GM CAP PO ×2 (09:18→18:11)
[2019-09-13] MEDS: PANTOPRAZOLE SOD SESQUIHYDRATE 20 MG TAB PO (09:18)
[2019-09-13] MEDS: SOLIFENACIN 5 MG TABLET 10 MG PO (09:18)
--- NOTE | 2019-09-13 11:16 | WPDNEURORHBP ---
Subjective Date/time seen: 09/13/19 11:16 Interval history: this 68-year-old woman is here with a right hemispheric stroke which has left her with moderately severe left-sided hemiparesis she has almost getting done with her heparin therapy to a 4 weeks. And prior to discharge am planning to discontinue this. The patient denies any new symptoms looking forward to go home working with the speech therapist physical therapy of compression therapy and gait training without any complaints of headache nausea vomiting chest pain shortness of breath fever chills or sore throat Review of Systems Review of Systems: All systems reviewed & are unremarkable except as noted in HPI and below Functional Status Ambulation Ability Ability to Ambulate 10 Feet: Moderate Assistance X 1 Ability to Ambulate 50 Feet With 2 Turns: Moderate Assistance X 1 Ambulation Assistive Devices: Cane, Devin Transfers Ability Ability to Transfer In/Out of Chair: Moderate Assistance X 1 Exam Const: General: comfortable and no acute distress HENMT: General nose exam: Normal nares present Mouth: Yes moist mucous membranes Eyes: General: appearance normal, both eyes and all related structures Neck: Neck: supple and no JVD Resp: Effort & Inspection: normal respiratory effort Auscultation: clear to auscultation bilaterally Cardio: Rate: regular rate Rhythm: regular rhythm GI: GI Palp: Yes Soft to palpation Auscultation: normal bowel sounds Skin: General skin exam: normal color and no rashes or lesions noted Neuro: Other: patient is awake alert well oriented time place person has normal speech along function normal cranial examination except left-sided facial weakness and moderate left-sided hemiparesis but significantly improved from the multiple previous examinations performed by this examiner Extrem: General: normal to inspection Psych: Mental Status: mental status grossly normal Objective Data Vital Signs Vital Signs: Vital Signs - 24 hr 09/12/19 14:00 09/12/19 20:40 09/12/19 20:56 Temperature 36.8 C Pulse Rate 66 68 72 Respiratory Rate 18 20 Blood Pressure 114/54 L Pulse Oximetry 99 95 09/12/19 21:40 09/13/19 06:00 Temperature 36.1 C L 36.6 C Pulse Rate 68 75 Respiratory Rate 20 16 Blood Pressure 115/48 L 136/74 Pulse Oximetry 95 97 Intake/Output Intake/Output: Intake & Output 09/10/19 09/11/19 09/12/19 09/13/19 23:59 23:59 23:59 23:59 Intake Total 647 304 4887 480 Balance 979 895 8686 480 Meds/Results Medications: Active Medications Generic Name Dose Route Start Last Admin Trade Name Maria Del Carmen PRN Reason Stop Dose Admin Amoxicillin/Clavulanate Potassium 1 tablet 09/05/19 21:00 09/13/19 09:15 Augmentin 875-125 Mg Tab PO 1 tablet Q12HR NOÉ Administration Aspirin 81 mg 08/23/19 09:00 09/13/19 09:16 Aspirin Ec PO 81 mg DAILY NOÉ Administration Atorvastatin Calcium 40 mg 08/22/19 21:00 09/12/19 20:54 Lipitor PO 40 mg HS NOÉ Administration Calcium Carbonate 500 mg 08/23/19 09:00 09/13/19 09:16 Os-Margarito 500 +D Tablet PO 500 mg DAILY NOÉ Administration Clopidogrel Bisulfate 75 mg 08/23/19 09:00 09/13/19 09:16 Plavix PO 75 mg DAILY NOÉ Administration Ferrous Sulfate 142 mg 08/23/19 08:00 09/13/19 09:15 Slow Fe 142 Mg PO 142 mg DAILY@0800 NOÉ Administration Fish Oil 1 gm 08/22/19 17:00 09/13/19 09:18 Lovaza PO 1 gm BID NOÉ Administration Fluoxetine HCl 40 mg 08/23/19 09:00 09/13/19 09:17 Prozac PO 40 mg DAILY NOÉ Administration Heparin Sodium (Porcine) 5,000 units 08/23/19 21:00 09/13/19 09:17 Heparin Sodium SUB-Q 5,000 units Q12HR NOÉ Administration Loratadine 10 mg 08/23/19 09:00 09/13/19 09:17 Claritin PO 10 mg DAILY NOÉ Administration Metoprolol Succinate 12.5 mg 08/22/19 21:00 09/12/19 20:56 Toprol Xl PO 12.5 mg HS NOÉ Administration Multivitamins/Minerals 1 tablet 08/23/19 09:00
[2019-09-13 14:00] VITALS: BP 113/57; PULSE 83; RESP 22; TEMP 37.1; O2SAT 96
[2019-09-13 20:41] VITALS: PULSE 70
[2019-09-13] MEDS: ATORVASTATIN 40 MG TABLET PO (20:41)
[2019-09-13] MEDS: METOPROLOL SUCCINATE EXT REL 12.5 MG TABCR PO (20:41)
[2019-09-13 22:00] VITALS: BP 142/54; PULSE 86; RESP 17; TEMP 36.4; O2SAT 92
[2019-09-14 05:48] VITALS: BP 131/52; PULSE 68; RESP 18; TEMP 36.9; O2SAT 95
[2019-09-14] MEDS: AMOXICILLIN/CLAVULANATE K 875-125 MG TAB 1 TABLET PO (09:03)
[2019-09-14] MEDS: CHOLECALCIFEROL 1,000 UNIT TABLET 5000 UNITS PO (09:03)
[2019-09-14] MEDS: FERROUS SULFATE DRIED 142 MG TABCR PO (09:03)
[2019-09-14] MEDS: ASPIRIN 81 MG ENTERIC TABLET PO (09:03)
[2019-09-14] MEDS: FLUOXETINE HCL 20 MG CAP 40 MG PO (09:04)
[2019-09-14] MEDS: CLOPIDOGREL BISULFATE 75 MG TABLET PO (09:04)
[2019-09-14] MEDS: LORATADINE 10 MG TABLET PO (09:04)
[2019-09-14] MEDS: SOLIFENACIN 5 MG TABLET 10 MG PO (09:05)
[2019-09-14] MEDS: PANTOPRAZOLE SOD SESQUIHYDRATE 20 MG TAB PO (09:05)
[2019-09-14] MEDS: OMEGA 3 POLYUNSAT FATTY ACIDS 1 GM CAP PO (09:05)
[2019-09-14] MEDS: OPTI-GEN TAB 1 TABLET PO (09:05)
[2019-09-14] MEDS: ramipriL 5 MG CAPSULE 10 MG PO (09:05)
[2019-09-14] MEDS: HEPARIN SODIUM 5,000 UNITS/ML VIAL 5000 UNITS SUB-Q (09:06)
--- NOTE | 2019-09-14 12:59 | WPDNEURORHBP ---
Subjective Date/time seen: 09/14/19 12:59 Interval history: this 68-year-old woman is admitted because of having had stroke with left-sided hemiparesis she has improved to a point that she is going to be discharged tomorrow to home with the home health she denies any headache nausea vomiting fevers chills sore throat she has finished the treatment for UTI with Augmentin and does not have any urinary symptoms Review of Systems Review of Systems: All systems reviewed & are unremarkable except as noted in HPI and below Functional Status Ambulation Ability Ability to Ambulate 10 Feet: Moderate Assistance X 1 Ability to Ambulate 50 Feet With 2 Turns: Moderate Assistance X 1 Ambulation Assistive Devices: Cane, Devin Transfers Ability Ability to Transfer In/Out of Chair: Moderate Assistance X 1 Exam Const: General: comfortable and no acute distress HENMT: General nose exam: Normal nares present Mouth: Yes moist mucous membranes Eyes: General: appearance normal, both eyes and all related structures Neck: Neck: supple and no JVD Resp: Effort & Inspection: normal respiratory effort Auscultation: clear to auscultation bilaterally Cardio: Rate: regular rate Rhythm: regular rhythm GI: GI Palp: Yes Soft to palpation Auscultation: normal bowel sounds Skin: General skin exam: normal color and no rashes or lesions noted Neuro: Other: patient is awake and alert were only to time present person has normal speech language functions left-sided hemiparesis has improved to a point that she will be able to go home with home health and with the care of her Extrem: General: normal to inspection Psych: Mental Status: mental status grossly normal Objective Data Vital Signs Vital Signs: Vital Signs - 24 hr 09/13/19 14:00 09/13/19 20:41 09/13/19 22:00 Temperature 37.1 C 36.4 C Pulse Rate 83 70 86 Respiratory Rate 22 H 17 Blood Pressure 113/57 L 142/54 H Pulse Oximetry 96 92 09/14/19 05:48 Temperature 36.9 C Pulse Rate 68 Respiratory Rate 18 Blood Pressure 131/52 L Pulse Oximetry 95 Intake/Output Intake/Output: Intake & Output 09/11/19 09/12/19 09/13/19 09/14/19 23:59 23:59 23:59 23:59 Intake Total 720 1200 960 240 Balance 720 1200 960 240 Meds/Results Medications: Active Medications Generic Name Dose Route Start Last Admin Trade Name Maria Del Carmen PRN Reason Stop Dose Admin Aspirin 81 mg 08/23/19 09:00 09/14/19 09:03 Aspirin Ec PO 81 mg DAILY NOÉ Administration Atorvastatin Calcium 40 mg 08/22/19 21:00 09/13/19 20:41 Lipitor PO 40 mg HS NOÉ Administration Calcium Carbonate 500 mg 08/23/19 09:00 09/14/19 09:03 Os-Margarito 500 +D Tablet PO 500 mg DAILY NOÉ Administration Clopidogrel Bisulfate 75 mg 08/23/19 09:00 09/14/19 09:04 Plavix PO 75 mg DAILY NOÉ Administration Ferrous Sulfate 142 mg 08/23/19 08:00 09/14/19 09:03 Slow Fe 142 Mg PO 142 mg DAILY@0800 NOÉ Administration Fish Oil 1 gm 08/22/19 17:00 09/14/19 09:05 Lovaza PO 1 gm BID NOÉ Administration Fluoxetine HCl 40 mg 08/23/19 09:00 09/14/19 09:04 Prozac PO 40 mg DAILY NOÉ Administration Heparin Sodium (Porcine) 5,000 units 08/23/19 21:00 09/14/19 09:06 Heparin Sodium SUB-Q 5,000 units Q12HR NOÉ Administration Loratadine 10 mg 08/23/19 09:00 09/14/19 09:04 Claritin PO 10 mg DAILY NOÉ Administration Metoprolol Succinate 12.5 mg 08/22/19 21:00 09/13/19 20:41 Toprol Xl PO 12.5 mg HS NOÉ Administration Multivitamins/Minerals 1 tablet 08/23/19 09:00 09/14/19 09:05 Ocuvite PO 1 tablet DAILY NOÉ Administration Pantoprazole Sodium 20 mg 08/23/19 09:00 09/14/19 09:05 Protonix PO 20 mg QAM NOÉ Administration Ramipril 10 mg 08/23/19 09:00 09/14/19 09:05 Altace PO 10 mg DAILY NOÉ Administration Solifenacin 10 mg 08/23/19 09:00 09/14/19 09:05 Vesicare PO 10 mg DAILY NOÉ Administration Vitam
--- NOTE | 2019-09-14 13:05 | PCDIET ---
Nutrition Follow-Up Complete: Nutrition Diagnosis: Inadequate energy intake related to decreased appetite as evidenced by today's lunch consumption (50%) and statement by patient and . Nutrition Goal: Patient will consume greater than 75% of all meals and acceptance of Enlive. Goal met. Patient consuming 70-100% of most meals on soft and bite size (level 6) diet and reports good appetite. Continues to take Ensure Enlive 1x daily. Last recorded weight is 63.6 kg. Recommend obtaining new weight. Bowel Motility: Last documented bowel movement on 09/12/19. Labs Reviewed: Glu (110), BUN (32) Meds Noted: Oscal 500 + D, Ferrous Sulfate, Lovaza, Ocuvite, Protonix, Vitamin D Additional Notes: No documented skin breakdown. Will continue to monitor with same goals. Nutrition Monitoring and Evaluation: Will monitor intake. Will follow up in 7 days.
--- NOTE | 2019-09-20 11:03 | PM.DS ---
DS: Diagnosis Admitting Diagnosis Admitting Diagnosis: Cerebral infarction due to unspecified occlusion or stenosis of unspecified cerebral artery Discharge Diagnosis (1) UTI (urinary tract infection): Code(s): N39.0 - Urinary tract infection, site not specified Status: Acute (2) Anemia: Code(s): D64.9 - Anemia, unspecified Status: Acute (3) Hyperlipidemia: Code(s): E78.5 - Hyperlipidemia, unspecified Status: Acute (4) DVT prophylaxis: Code(s): Z29.9 - Encounter for prophylactic measures, unspecified Status: Acute (5) Hypertension: Code(s): I10 - Essential (primary) hypertension Status: Acute (6) Stroke: Code(s): I63.9 - Cerebral infarction, unspecified Status: Acute (7) Left hemiparesis: Code(s): G81.94 - Hemiplegia, unspecified affecting left nondominant side Status: Acute DS: Summary Hospital Course Reason for hospitalization: This 68-year-old woman was admitted with the diagnosis of 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 Eating was set up oral hygiene was set up 12 eating was substantial bathing was partial assistance upper body dressing was partial assistance lower body dressing was substantial footwear was substantial rolling in bed was supervision sitting to lying partial assistance lying to sitting partial assistance sit to stand partial assistance chair transfers partial assistance 12 a transverse partial assistance car transfers partial assistance walking 10 feet partial assistance walking 50 feet with a 2 turns partial assistance or other unable to do walking 150 feet patient unable to do walking 10 feet uneven surfaces patient unable to do car burst step patient unable to do 4 steps patient unable to 12 steps patient unable to do [place] object patient unable to do wheelchair 50 feet partial assistance wheelchair 150 feet partial assistance patient was sent home with home health to follow and no falls were recorded Time Spent with Patient Time attestation: Total time spent providing and/or coordinating discharge services: Exam Const: General: comfortable and no acute distress HENMT: General nose exam: Normal nares present Eyes: General: appearance normal, both eyes and all related structures Neck: Neck: supple and no JVD Resp: Effort & Inspection: normal respiratory effort Auscultation: clear to auscultation bilaterally Cardio: Rate: regular rate Rhythm: regular rhythm GI: GI Palp: Yes Soft to palpation Auscultation: normal bowel sounds Skin: General skin exam: normal color and no rashes or lesions noted Neuro: Other: patient remained awake and alert will oriented times place and person and of course improved left-sided hemiparesis from the time she came to us Extrem: General: normal to inspection Psych: Mental Status: mental status grossly normal DS: Data Data Completed and Pending Completed studies during hospitalization: on September 13, 2019 the patient's white count was 7900 hemoglobin of 14.1 hematocrit 40.2.9 and a platelet count of 2 and 48,000 patient was treated for E coli with the antibiotics and did very well discharge medications as per our discharge planned electronically documented Discharge Plan Discharge Attending physician on discharge: Amarjit Fox Discharging Clinician: Amarjit Fox Anticipated Discharge Date/Time: 09/14/19 13:36 Patient Disposition: Home Health Service Activity: may shower and no driving Diet: as tolerated Discharge Instructions: Tae
== END 2019-09-14 15:30 | disposition home health service (06) | DRG 57 ==
PROVIDERS: Admitting Provider Psychiatry & Neurology Neurology; Visit Provider Psychiatry & Neurology Neurology
DX: I69.354 Hemiplegia and hemiparesis following cerebral infarction affecting left non-dominant side (principal); N39.0 Urinary tract infection, site not specified; Z16.29 Resistance to other single specified antibiotic; I69.322 Dysarthria following cerebral infarction; I69.392 Facial weakness following cerebral infarction; I69.391 Dysphagia following cerebral infarction; R13.12 Dysphagia, oropharyngeal phase; B96.29 Other Escherichia coli [E. coli] as the cause of diseases classified elsewhere; D64.9 Anemia, unspecified; E03.9 Hypothyroidism, unspecified; E78.5 Hyperlipidemia, unspecified; F32.9 Major depressive disorder, single episode, unspecified; I10 Essential (primary) hypertension; K21.9 Gastro-esophageal reflux disease without esophagitis; R93.89 Abnormal findings on diagnostic imaging of other specified body structures; Z79.02 Long term (current) use of antithrombotics/antiplatelets
CPT/HCPCS: 36415; 80048; 81001; 85025; 87077; 87081; 87086; 87088; 87186; 92507; 92526; 92610; 92611; 97110; 97112; 97116; 97129; 97150; 97162; 97166; 97530; 97535; 97542; A9270; J1644